=== PATIENT | female | born 1970 | race Caucasian/White ===

== ENCOUNTER → 2018-09-01 17:28 | Outpatient (CLI) | payer BC, SELFPAY ==
[2018-09-01 18:36] LABS: Add Manual Diff / Slide Review NO; Basophils Absolute Auto 0 /uL (0-100); Basophils Percent Auto 0.4 % (0-2); Eosinophils Absolute Auto 300 /uL (0-450); Eosinophils Percent Auto 4.1 % (2-4); Hematocrit 39.1 % (36-46); Hemoglobin 12.9 g/dL (12.0-16.0); Lymphocytes Absolute Auto 3300 /uL (1100-4500); Lymphocytes Percent Auto 40.2 % (25-40); Mean Corpuscular HGB Conc 32.9 % (30-36); Mean Corpuscular Volume 91.1 fL (80-100); Monocytes Absolute Auto 600 /uL (0-900); Monocytes Percent Auto 7.4 % (3-14); Neutrophils Absolute Auto 3900 /uL (1500-7000); Neutrophils Percent Auto 47.9 % (50-75); Platelet Count 227 X10^3/uL (150-400); Red Blood Cell Count 4.29 X10^6/uL (4.0-5.2); Red Cell Distribution Width 13.4 % (11.6-14.8); White Blood Cell Count 8.2 X10^3/uL (4.5-11.0)
[2018-09-01 18:42] LABS: Blood Urea Nitrogen 14 mg/dL (7-17); Calcium 9.7 mg/dL (8.4-10.2); Carbon Dioxide 29 mmol/L (22-32); Chloride 103 mmol/L (98-107); Estimated Glomerular Filt Rate > 60.0 mL/min (>60); Glucose 98 mg/dL (70-100); HEMOLYSIS < 15 (0-50); Potassium 4.3 mmol/L (3.4-5.1); Sodium 141 mmol/L (137-145)
== END ==
PROVIDERS: PCP Student in an Organized Health Care Education/Training Program; Visit Provider Registered Nurse
DX: Z01.812 Encounter for preprocedural laboratory examination (principal)
CPT/HCPCS: 36415; 80048; 85025

== ENCOUNTER → 2018-09-24 07:44 | Outpatient (CLI) | payer BC, SELFPAY ==
[2018-09-24 09:17] LABS: BUN Creatinine Ratio 24.3 (6-22); Blood Urea Nitrogen 17 mg/dL (7-17); Carbon Dioxide 31 mmol/L (22-32); Chloride 99 mmol/L (98-107); Estimated Glomerular Filt Rate > 60.0 mL/min (>60); Glucose 94 mg/dL (70-100); HEMOLYSIS < 15 (0-50); Potassium 4.7 mmol/L (3.4-5.1); Sodium 139 mmol/L (137-145)
== END ==
PROVIDERS: Family Provider Registered Nurse; PCP Registered Nurse; Visit Provider Orthopaedic Surgery
DX: Z13.1 Encounter for screening for diabetes mellitus (principal); E11.9 Type 2 diabetes mellitus without complications; I10 Essential (primary) hypertension
CPT/HCPCS: 36415; 80048

== ENCOUNTER 2018-10-02 21:46 | Emergency (ER) | payer BC, SELFPAY ==
[2018-10-02 22:03] VITALS: BP 143/80; PULSE 61; RESP 16; TEMP 37.1; O2SAT 96; BMI 43.8
--- NOTE | 2018-10-02 23:31 | PC.NURSE ---
Pt c/o chills,pain,nausea,diarrhea, states hasn't had her daily 8mg of morphine via pain pump for 2 weeks due to not being able to refill from pain doctor legalities. Pt has not had any in 2 weeks and is unable to get refill due to legalities related to pain doctor.
[2018-10-03] MEDS: ONDANSETRON 4 MG/2 ML INJ IV (00:10)
--- NOTE | 2018-10-03 00:19 | ED.BACK ---
HPI - Back Pain/Injury General Chief Complaint: Back Pain/Injury Stated Complaint: Withdrawels Time Seen by Provider: 10/02/18 23:49 Source: patient Mode of arrival: ambulatory Limitations: no limitations History of Present Illness HPI Narrative: the patient is a 48-year-old female who presents with body aches diarrhea and back pain. Since 2006 she has had a morphine pump installed in her back to help control her back pain. Unfortunately the doctor who has been prescribing morphine and place a morphine pump which is replaced every 5 years has lost his license. She was supposed to get the morphine refilled [facility] but due to the circumstances she was unable to. She is not sure when the pump ran out of morphine however for the last few days she has been cold and chilled shaking extremely sensitive to touch some abdominal cramping and diarrhea. She said this feels like the last time when she went through withdrawal. She has not had nausea or vomiting. She denies any fever. His MD Complaint: back pain Onset (ago): year(s) Related Data Home Medications Medication Instructions Recorded Confirmed spironolactone 100 mg PO DAILY 10/01/18 10/01/18 Previous Rx's Medication Instructions Recorded hydrocodone 5 mg-acetaminophen 325 1 tab PO SEE INSTRUCTIONS PRN #120 02/17/18 mg tablet tab levothyroxine 50 mcg tablet 50 mcg PO QAM #90 tab 02/17/18 metoprolol succinate ER 25 mg 25 mg PO DAILY #90 tab 02/17/18 tablet,extended release 24 hr lisinopril 10 mg tablet 10 mg PO DAILY #30 tab 09/05/18 clonidine HCl 0.1 mg PO BID PRN #20 tab 10/03/18 ondansetron 4 mg PO Q6-8H PRN #10 tab 10/03/18 Allergies Allergy/AdvReac Type Severity Reaction Status Date / Time Iodine and Iodide Containing Allergy Severe HIVES-ANAPHYLAXSIS Verified 10/02/18 22:06 Produc AND HIVES [IODINE AND IODIDE CONTAINING PRODUC] Penicillins [PENICILLINS] Allergy Severe HIVES-ANAPH Verified 10/02/18 22:06 LAXYSIS-HIV ES Review of Systems Review of Systems GENERAL: Denies chills, fatigue, malaise, fever, sweats, travel HEENT: Denies sinus pain, ear pain, sore throat, difficulty swallowing, neck pain RESPIRATORY: Denies dyspnea, cough, wheezing, hemoptysis, sputum. CARDIOVASCULAR: Denies chest pain, palpitations, orthopnea, edema GASTROINTESTINAL:+ Abdominal discomfort, diarrhea : Denies dysuria, frequency, incontinence, hematuria, urinary retention, flank pain. MUSCULOSKELETAL: Denies weakness, joint pain, or bony pain SKIN: No rash, no erythema, no pruritus NEUROLOGIC: Denies weakness, dizziness, headache, numbness, change in speech, confusion PSYCHIATRIC: chronic opiate use 12 point review of systems is negative except for those stated above and HPI PFSH Medical History Arthritis (Acute) Asthma (Acute) Edema (Acute) Kidney stones (Acute ~2006) Precancerous skin lesion (Acute) Prolapsed bladder (Acute) Ankle pain (Chronic 2014) Chronic low back pain (Chronic) Foot pain (Chronic) Hypertension (Chronic 1999) Hypothyroidism (Chronic 2013) Osteoarthritis (Chronic 2000) Tinea pedis (Chronic) Urinary incontinence (Chronic 2012) Surgical History Anesthesia (Resolved) History of hernia surgery (Resolved) Status post breast biopsy (Resolved) Status post hysterectomy (Resolved 1999) Status post insertion of intrathecal pump (Resolved ~2012) Family History Father Diabetes mellitus Heart disease Hypertension Grandfather Heart disease Cancer Heart attack Grandmother Diabetes mellitus Breast cancer Mother Diabetes mellitus Heart disease Hypertension High cholesterol Social History Smoking Status: Never smoker alcohol intake: current substance use type: does not use Social History Smoking Status: Never smoker alcohol intake: current substance use type: does not use Exam Initial Vital Signs Initial Vital Signs: Vital Signs Temperature 98.8 F 10/02/18 22:03 Pulse Rate 61 10/02/18 22:03 Respiratory Rate 16 10/02/18 22:03 Blood Pressure 143/80 H 10/02/18 22:03 Pulse Oximetry 96 10/02/18 22:03 GENERAL: Overweight covered in blankets appears slightly pale HEENT: Head atraumatic,EOMI, pupils reactive CARDIOVASCULAR: Regular rate and rhythm without murmurs, rubs or gallops. RESPIRATORY: Breath sounds equal bilaterally, no wheezes rales or rhonchi. ABDOMEN: Soft, obese mild lower abdominal tenderness without localization guarding or rebound. EXTREMITIES: Normal range of motion, no clubbing or edema. Neurovascularly intact NEUROLOGICAL: Alert and oriented x4 print traffic manager strength equal bilaterally SKIN: Warm, dry, no laceration, no petechiae, no rashes or lesions. Course Orders Ordered: ED Orders 10/03/18 00:10 Basic Metabolic Panel Stat Complete Blood Count AUTO DIFF Stat Discontinued Medications Clonidine HCl (Catapres) 0.1 mg PO NOW ONE Stop: 10/03/18 01:40 Last Admin: 10/03/18 01:46 Dose: 0.1 mg Sodium Chloride (Normal Saline 0.9%) 1,000 mls @ 1,000 mls/hr IV BOLUS ONE Stop: 10/03/18 01:05 Last Infusion: 10/03/18 01:47 Dose: 1,000 mls/hr Admin: 10/03/18 00:28 Dose: 1,000 mls/hr Ketorolac Tromethamine (Toradol) 30 mg IV NOW ONE Stop: 10/03/18 00:07 Last Admin: 10/03/18 00:28 Dose: 30 mg Ondansetron HCl (Zofran) 4 mg IV NOW ONE Stop: 10/03/18 00:07 Last Admin: 10/03/18 00:10 Dose: 4 mg Ondansetron HCl (Zofran Odt Prepack) 1 bottle MISC SEEINSTR ONE Stop: 10/03/18 01:40 Last Admin: 10/03/18 01:46 Dose: 1 bottle Vital Signs - 8 hr 10/02/18 22:03 10/03/18 01:46 10/03/18 01:48 Temperature 98.8 F Pulse Rate 61 62 57 L Respiratory Rate 16 15 Blood Pressure 143/80 H 144/81 H Blood Pressure [Right Arm] 140/74 Pulse Oximetry 96 98 10/03/18 02:01 Temperature 98.7 F Pulse Rate Respiratory Rate Blood Pressure Blood Pressure [Right Arm] Pulse Oximetry MDM - Back Pain/Injury Lab Data Result diagrams: 10/03/18 00:10 10/03/18 00:10 Lab Results 10/03/18 10/03/18 Range/Units 00:10 00:10 WBC 13.3 H (4.5-11.0) X10^3/uL RBC 4.59 (4.0-5.2) X10^6/uL Hgb 13.6 (12.0-16.0) g/dL Hct 40.8 (36-46) % MCV 88.9 (80-100) fL MCH 29.7 (26-34) PG MCHC 33.4 (30-36) % RDW 13.0 (11.6-14.8) % Plt Count 273 (150-400) X10^3/uL Neut % (Auto) 72.6 (50-75) % Lymph % (Auto) 20.0 L (25-40) % [place] % (Auto) 6.8 (3-14) % Eos % (Auto) 0.0 L (2-4) % Baso % (Auto) 0.6 (0-2) % Neut # (Auto) 9700 H (3303-0995) /uL Lymph # (Auto) 2700 (4710-9829) /uL [place] # (Auto) 900 (0-900) /uL Eos # (Auto) 0 (0-450) /uL Baso # (Auto) 100 (0-100) /uL Sodium 140 (137-145) mmol/L Potassium 4.0 (3.4-5.1) mmol/L Chloride 105 (98-107) mmol/L Carbon Dioxide 23 (22-32) mmol/L BUN 14 (7-17) mg/dL Creatinine 0.70 (0.52-1.04) mg/dL Estimated GFR > 60.0 (>60) mL/min BUN/Creatinine Ratio 20.0 (6-22) Glucose 116 H (70-100) mg/dL Calcium 9.6 (8.4-10.2) mg/dL MDM Narrative Medical decision making narrative: Patient is resting comfortably she has mild leukocytosis without left shift. She has been afebrile. the symptoms are similar to her previous symptoms of withdrawal. She does have multiple loose bowel movements. Long discussion with patient and her about chronic pain medication and opiates. Is not sure she will find somebody to refill her pump medications. I recommended methadone or Suboxone clinic to help her with withdrawals this will also help with pain. She they are given his referral so that along with [facility] and Dr. Holt. Patient says that she has been through everything in the past and the intraspinal morphine continue with pump is the only thing that has worked for her. She is not requesting any pain medication in the ED. I have also made it very clear that I will not be writing her opiate medications. She does not have vomiting she is keeping fluids in. At this time I do not think that she has any sort of infection. I did recommend that if the pump does not have any medications in it is no longer being used that it does need to come out. They understand and agree with that as well they understand risk of infection with this. Patient is given prescriptions for Zofran and clonidine. In the ED for more than 3 hr she has not had 1 episode of diarrhea or vomiting. Discharge Plan Departure Patient Disposition: Home Clinical Impression: Acute opioid withdrawal Discharge Date/Time: 10/03/18 02:02 Interventions: ED Discharge Assessment Last Done: 10/03/18 02:01 Instructions: Buprenorphine Sublingual and Buccal (opioid dependence) Activity Restrictions/Additional Instructions: *You have been diagnosed with opioid withdrawal *What to do: recommend methadone or Suboxone clinic to help with withdrawal symptoms as. You may also need chronic pain management as well. *Continue to take medications as directed --> [facility] Clonidine 0.1 mg p.o. twice a day to help with anxiety Zofran 4 mg every 6-8 hours if needed for nausea or vomiting *Follow up with your primary care provider in 2-3 days *Return to ER if you should have unable to keep any fluid in, fever sweats worsening chills or signs of infection or any new, worsening or concerning symptoms Prescriptions: New clonidine HCl 0.1 mg tablet 0.1 mg PO BID PRN (Reason: anxiety) Qty: 20 RF: 0 ondansetron 4 mg tablet,disintegrating 4 mg PO Q6-8H PRN (Reason: nausea and vomiting) Qty: 10 RF: 0 No Action hydrocodone-acetaminophen [[place]] 5-325 mg tablet 1 tab PO SEE INSTRUCTIONS PRN (Reason: pain) Qty: 120 RF: 0 levothyroxine [Synthroid] 50 mcg tablet 50 mcg PO QAM Qty: 90 RF: 3 metoprolol succinate 25 mg tablet extended release 24 hr 25 mg PO DAILY Qty: 90 RF: 3 lisinopril 10 mg tablet 10 mg PO DAILY Qty: 30 RF: 1 spironolactone 100 mg Tablet 100 mg PO DAILY RF: 0 Referrals: Eris Holt DO [Physician] - Jody Mackey ARNP [Primary Care Provider] -
[2018-10-03] MEDS: SODIUM CHLORIDE 0.9% 1,000 ML 1000 ML IV (00:28)
[2018-10-03] MEDS: KETOROLAC 60 MG/2 ML VIAL 30 MG IV (00:28)
[2018-10-03 00:35] LABS: Add Manual Diff / Slide Review NO; Basophils Absolute Auto 100 /uL (0-100); Basophils Percent Auto 0.6 % (0-2); Eosinophils Absolute Auto 0 /uL (0-450); Hematocrit 40.8 % (36-46); Hemoglobin 13.6 g/dL (12.0-16.0); Lymphocytes Absolute Auto 2700 /uL (1100-4500); Mean Corpuscular HGB Conc 33.4 % (30-36); Mean Corpuscular Hemoglobin 29.7 PG (26-34); Mean Corpuscular Volume 88.9 fL (80-100); Monocytes Absolute Auto 900 /uL (0-900); Monocytes Percent Auto 6.8 % (3-14); Neutrophils Absolute Auto 9700 /uL (1500-7000); Neutrophils Percent Auto 72.6 % (50-75); Platelet Count 273 X10^3/uL (150-400); Red Blood Cell Count 4.59 X10^6/uL (4.0-5.2); White Blood Cell Count 13.3 X10^3/uL (4.5-11.0)
[2018-10-03 00:39] LABS: Blood Urea Nitrogen 14 mg/dL (7-17); Calcium 9.6 mg/dL (8.4-10.2); Carbon Dioxide 23 mmol/L (22-32); Chloride 105 mmol/L (98-107); Estimated Glomerular Filt Rate > 60.0 mL/min (>60); Glucose 116 mg/dL (70-100); HEMOLYSIS 45 (0-50); Sodium 140 mmol/L (137-145)
[2018-10-03 01:46] VITALS: BP 144/81; PULSE 62
[2018-10-03] MEDS: cloNIDine 0.1 MG TABLET PO (01:46)
[2018-10-03] MEDS: ONDANSETRON 4 MG ODT PREPACK 1 BOTTLE MISC (01:46)
[2018-10-03 01:48] VITALS: BP 140/74; PULSE 57; RESP 15; O2SAT 98
[2018-10-03 02:01] VITALS: TEMP 37.1
== END 2018-10-03 02:02 | disposition home or self-care (01) ==
PROVIDERS: Emergency Provider Emergency Medicine; Family Provider Registered Nurse; PCP Registered Nurse
DX: F11.23 Opioid dependence with withdrawal (principal)
CPT/HCPCS: 36591; 80048; 85025; 96361; 96374; 96375; 99283; 99284; J1885; J2405

== ENCOUNTER → 2018-12-15 10:12 | Outpatient (CLI) | payer BC, SELFPAY ==
[2018-12-15 11:17] LABS: BUN Creatinine Ratio 15.7 (6-22); Blood Urea Nitrogen 11 mg/dL (7-17); Calcium 9.5 mg/dL (8.4-10.2); Carbon Dioxide 28 mmol/L (22-32); Chloride 102 mmol/L (98-107); Cholesterol 222 mg/dL (140-199); Estimated Glomerular Filt Rate > 60.0 mL/min (>60); Glucose 116 mg/dL (70-100); HDL Cholesterol 60 mg/dL (40-60); HEMOLYSIS < 15 (0-50); LDL Cholesterol Calculated 133 mg/dL (<100); Sodium 141 mmol/L (137-145); Triglycerides 147 mg/dL (35-150)
[2018-12-15 11:32] LABS: Vitamin D 25 Hydroxy (D3) 18.1 ng/mL (30.0-100.0)
[2018-12-15 11:36] LABS: Free T3, Triiodothyronine Free 3.13 pg/mL (2.77-5.27); Free T4, Direct Thyroxine 0.93 ng/dL (0.78-2.19)
[2018-12-15 11:49] LABS: Thyroid Stimulating Hormone 1.49 uIU/mL (0.47-4.68)
== END ==
PROVIDERS: PCP Student in an Organized Health Care Education/Training Program; Visit Provider Student in an Organized Health Care Education/Training Program
DX: E03.9 Hypothyroidism, unspecified (principal); I10 Essential (primary) hypertension; Z13.220 Encounter for screening for lipoid disorders; E55.9 Vitamin D deficiency, unspecified
CPT/HCPCS: 36415; 80048; 80061; 82306; 84439; 84443; 84481

== ENCOUNTER → 2018-12-16 15:32 | Outpatient (CLI) | payer BC, SELFPAY ==
--- NOTE | 2018-12-16 15:33 | DI.RAD.S_ITS ---
PROCEDURE: XR CHEST 2V INDICATIONS: Shortness of breath TECHNIQUE: 2 views of the chest were acquired. COMPARISON: formerly [facility], CHEST 1 VIEW, 12/31/2015, 14:21. formerly [facility], CHEST 2 VIEW, 09/25/2017, 13:32. FINDINGS: Surgical changes and devices: None. Lungs and pleura: Lungs are clear. No pleural effusions or pneumothorax. Mediastinum: Mediastinal contours are normal. Heart size is normal. Bones and chest wall: No suspicious bony abnormalities. Soft tissues appear unremarkable. IMPRESSION: No active cardiopulmonary disease. Dictated by: Andrew Velez M.D. on 12/16/2018 at 16:13 Approved by: Andrew Velez M.D. on 12/16/2018 at 16:14
== END ==
PROVIDERS: PCP Student in an Organized Health Care Education/Training Program; Visit Provider Nurse Practitioner
DX: R06.02 Shortness of breath (principal)
CPT/HCPCS: 71046

== ENCOUNTER → 2019-03-26 17:05 | Outpatient (CLI) | payer BC, SELFPAY ==
--- NOTE | 2019-03-26 17:07 | DI.MG.S_ITS ---
BILATERAL DIGITAL SCREENING MAMMOGRAM 3D/2D WITH CAD: 03/26/2019 CLINICAL: Routine screening. Family history of breast cancer. Comparison is made to exams dated: 05/29/2017 mammogram, 01/29/2014 mammogram, and 08/24/2011 mammogram - [facility]. The tissue of both breasts is predominantly fatty. Current study was also evaluated with a Computer Aided Detection (CAD) system. No significant masses, calcifications, or other findings are seen in either breast. There has been no significant interval change. IMPRESSION: NEGATIVE There is no mammographic evidence of malignancy. A 1 year screening mammogram is recommended. This exam was interpreted at Station ID: [id number]. NOTE: For mammograms, a report in lay terms will be sent to the patient. Approximately 15% of breast malignancies will not be visualized mammographically. In the management of a palpable breast mass, a negative mammogram must not discourage biopsy of a clinically suspicious lesion. Electronically Signed By: Reza dorado/lisa:03/27/2019 08:22:31 letter sent: Normal Exam ACR BI-RADS Category 1: Negative [id number]
== END ==
PROVIDERS: PCP Student in an Organized Health Care Education/Training Program; Visit Provider Student in an Organized Health Care Education/Training Program
DX: Z12.31 Encounter for screening mammogram for malignant neoplasm of breast (principal); Z80.3 Family history of malignant neoplasm of breast
CPT/HCPCS: 77063; 77067

== ENCOUNTER 2019-09-16 11:38 | Emergency (ER) | payer BC, SELFPAY ==
[2019-09-16 11:42] VITALS: BP 137/89; PULSE 76; RESP 20; TEMP 37.2; O2SAT 97; BMI 42.3
[2019-09-16 12:27] LABS: Influenza A - CEPHEID Flu A POSITIVE (NEGATIVE); Influenza B - CEPHEID Flu B NEGATIVE (NEGATIVE)
--- NOTE | 2019-09-16 12:29 | ED_ITS ---
HPI - URI/Sore Throat <Carleen Mckeon, SPINE SUPERVISOR - Last Filed: 09/16/19 21:59> General Chief Complaint: Upper Respiratory Symptoms Stated Complaint: asthma hard time breathing headache bi ears issue Time Seen by Provider: 09/16/19 12:24 Source: patient Mode of arrival: Ambulatory Limitations: no limitations History of Present Illness HPI Narrative: 49-year-old female with history of asthma presents to the emergency department complaining shortness of breath and wheezing over the past 2 days. Patient states she recently flew from [place] to [place] and started to feel like she had chills, nasal congestion, dry cough, and intermittent nausea. She usually takes Breo Ellipta and comnivent for her asthma. Patient is needed her rescue or frequently over the past 24 hours. Patient denies any sick contacts that she knows of. She denies vomiting, abdominal pain, diarrhea, chest pain, dizziness, or other concerns. Related Data Home Medications Medication Instructions Recorded Confirmed triamcinolone acetonide 55 mcg 1 spray NASAL DAILY 07/14/19 08/13/19 nasal spray aerosol Previous Rx's Medication Instructions Recorded albuterol sulfate 90 mcg/actuation 1 puff INHALATION Q4-6H PRN #6.7 12/16/18 aerosol inhaler gram losartan 50 mg tablet 75 mg PO DAILY #45 tab 12/16/18 citalopram 20 mg tablet 20 mg PO DAILY #90 tab 03/06/19 spironolactone 100 mg tablet 100 mg PO DAILY #90 tab 03/06/19 montelukast 10 mg tablet 10 mg PO BEDTIME #30 tab 04/08/19 phentermine 37.5 mg tablet See Rx Instructions PO BID #90 tab 04/09/19 fluticasone furoate 200 1 inhalation INHALATION DAILY #60 08/13/19 mcg-vilanterol 25 mcg/dose each inhalation powder hydrocodone 5 mg-acetaminophen 325 1 tab PO BID PRN #60 tab 08/13/19 mg tablet ipratropium 20 mcg-albuterol 100 1 puff INHALATION QID #4 gram 08/13/19 mcg/actuation mist for inhalation oseltamivir [Tamiflu] 75 mg PO BID 5 Days #10 cap 09/16/19 prednisone 50 mg PO DAILY 5 Days #5 tab 09/16/19 Allergies Allergy/AdvReac Type Severity Reaction Status Date / Time Iodine and Iodide Containing Allergy Severe HIVES-ANAPHYLAXSIS Verified 08/13/19 09:04 Produc AND HIVES [IODINE AND IODIDE CONTAINING PRODUC] Penicillins [PENICILLINS] Allergy Severe HIVES-ANAPH Verified 08/13/19 09:04 LAXYSIS-HIV ES EWA Inhibitors AdvReac Intermediate Cough Verified 08/13/19 09:04 Review of Systems <SHAE Greenfield - Last Filed: 09/16/19 21:59> Review of Systems Narrative: REVIEW OF SYSTEMS: GENERAL: Reports increasing fatigue, see HPI. HENT: No head trauma or hearing loss. EYES: No loss of vision, double vision, eye pain, irritation or discharge. CARDIOVASCULAR: No chest pain or syncope. RESPIRATORY: Patient complains of wheezing and cough, see HPI. GASTROINTESTINAL: No nausea, vomiting, diarrhea, or constipation. MUSCULOSKELETAL: No weakness or injury. INTEGUMENTARY: No rash, lesions, or pruritus. NEURO: No memory loss, or confusion. Patient History <SHAE Greenfield - Last Filed: 09/16/19 21:59> Medical History Ankle pain (Chronic 2014) Arthritis (Acute) Asthma (Acute) Chronic low back pain (Chronic) Edema (Acute) Foot pain (Chronic) Hypertension (Chronic 1999) Hypothyroidism (Chronic 2013) Kidney stones (Acute ~2006) Osteoarthritis (Chronic 2000) Precancerous skin lesion (Acute) Prolapsed bladder (Acute) Tinea pedis (Chronic) Urinary incontinence (Chronic 2012) Surgical History Anesthesia (Resolved) History of hernia surgery (Resolved) Status post breast biopsy (Resolved) Status post hysterectomy (Resolved 1999) Status post insertion of intrathecal pump (Resolved ~2012) Family History Father Diabetes mellitus Heart disease Hypertension Grandfather Heart disease Cancer Heart attack Grandmother Diabetes mellitus Breast cancer Mother Diabetes mellitus Heart disease Hypertension High cholesterol Social History household members: significant other Smoking Status: Smoker, status unknown second hand exposure: No alcohol intake: current substance use type: does not use Smoking Status: Smoker, status unknown alcohol intake frequency: holidays/special occasions only Substance Use Type: does not use Exam <SHAE Greenfield - Last Filed: 09/16/19 21:59> Initial Vital Signs Initial Vital Signs: Vital Signs Temperature 98.9 F 09/16/19 11:42 Pulse Rate 76 09/16/19 11:42 Respiratory Rate 20 09/16/19 11:42 Blood Pressure 137/89 09/16/19 11:42 Pulse Oximetry 97 09/16/19 11:42 PHYSICAL EXAMINATION: GENERAL: Well groomed, alert, and cooperative. Answers questions promptly and appropriately. Vital signs noted. HENT: Normocephalic, atraumatic. Ear canals patent. TMs intact without mucus or erythema. Oropharynx with slight amount of erythema, see HPI. Tonsils are not present. EYES: Conjunctiva pink, sclera white, no periorbital swelling. No discharge. CHEST: Normal to inspection and without deformities. CARDIOVASCULAR: S1 and S2 sounds normal. Regular rate and rhythm, no murmurs, clicks, or bruits. RESPIRATORY: Normal respiratory rate, trachea midline, airway patent. No stridor, nasal flaring or accessory muscle use. Able to speak in full sentences. Lungs with expiratory wheezes heard on examination, no crackles or rhonchi. Wheezes improved after administration of DuoNeb. MUSCULOSKELETAL: Normal gait and coordination. Equal tone and mass bilaterally. EXTREMITIES: Moves all extremities. SKIN: Warm, dry, soft, appropriate color for ethnicity. No lesions, rashes, or wounds to visualized areas. NEURO: Alert and Oriented X 3. Good coordination. No ataxia or cognitive issues. PSYCH: Appropriate affect and mood. <Mamadou Yusuf MD - Last Filed: 09/16/19 22:01> Initial Vital Signs Initial Vital Signs: Vital Signs Temperature 98.9 F 09/16/19 11:42 Pulse Rate 76 09/16/19 11:42 Respiratory Rate 09/16/19 11:42 Blood Pressure 137/89 09/16/19 11:42 Pulse Oximetry 97 09/16/19 11:42 Course <SHAE Greenfield - Last Filed: 09/16/19 21:59> Course Course Narrative: Patient was given a DuoNeb in the emergency department which improved symptoms. Orders Ordered: Discontinued Medications Albuterol/Ipratropium (Duoneb) 3 ml INH NOW ONE Stop: 09/16/19 12:59 Last Admin: 09/16/19 13:28 Dose: 3 ml Documented by: LEODANUONG Vital Signs Vital signs: Vital Signs - 8 hr 09/16/19 11:42 Temperature 98.9 F Pulse Rate 76 Respiratory Rate 20 Blood Pressure 137/89 Pulse Oximetry 97 <Mamadou Yusuf MD - Last Filed: 09/16/19 22:01> Orders Ordered: Discontinued Medications Albuterol/Ipratropium (Duoneb) 3 ml INH NOW ONE Stop: 09/16/19 12:59 Last Admin: 09/16/19 13:28 Dose: 3 ml Documented by: HTRUONG Vital Signs Vital signs: Vital Signs - 8 hr 09/16/19 11:42 Temperature 98.9 F Pulse Rate 76 Respiratory Rate 20 Blood Pressure 137/89 Pulse Oximetry 97 MDM - URI/Sore Throat <SHAE Greenfield - Last Filed: 09/16/19 21:59> Medical Records Attestation: I reviewed the patient's medical records. Lab Data Attestation: I reviewed the patient's lab results. Labs: Lab Results 09/16/19 Range/Units 11:47 Influenza A (RT-PCR) Flu a positive H (NEGATIVE) Influenza B (RT-PCR) Flu b negative (NEGATIVE) [facility] Narrative Medical decision making narrative: 49-year-old female presents to the emergency department for worsening asthma symptoms. Patient's test was positive for influenza A. Patient developed symptoms within the last 48 hours, she was started on Tamiflu after discussion of risks and benefits. Due to wheezing and history of significant asthma, patient was given a burst of prednisone. She was given a DuoNeb in the emergency department which improved symptoms. She was counseled about the importance of follow-up within 1-2 weeks for further evaluation. Strict ED precautions given for new worsening symptoms, she is to return emergency department if these develop. Less concern for the development of pneumonia due to positive influenza test and symptoms have been ongoing for only 2 days, lack of crackles on examination. Less concern for sepsis due to lack of tachycardia, or fevers. Patient agreed with plan of care verbalized understanding. <Mamadou Yusuf MD - Last Filed: 09/16/19 22:01> Lab Data Labs: Lab Results 09/16/19 Range/Units 11:47 Influenza A (RT-PCR) Flu a positive H (NEGATIVE) Influenza B (RT-PCR) Flu b negative (NEGATIVE) Discharge Plan Departure Patient Disposition: Home Clinical Impression: Influenza A Asthma exacerbation Qualifiers: Asthma severity: moderate Asthma persistence: persistent Qualified Code(s): J45.41 - Moderate persistent asthma with (acute) exacerbation Discharge Date/Time: 09/16/19 13:48 Instructions: DI for Asthma -- Adult, DI for Influenza -- Adult Activity Restrictions/Additional Instructions: Thank you for entrusting me with your care today. As discussed, you tested positive for influenza A. I have prescribed you Tamiflu and prednisone, prescription sent to [facility] (formerly [facility] in [place]. Please cover your cough and wash your hands as influenza is contagious. Please call your primary care provider for an appointment for re-evaluation next week. Return emergency department if you develop worsening symptoms such as severe shortness of breath, worsening asthma symptoms, uncontrollable vomiting, chest pain, or other concerns. Prescriptions: New oseltamivir [Tamiflu] 75 mg capsule 75 mg PO BID 5 Days Qty: 10 RF: 0 prednisone 50 mg tablet 50 mg PO DAILY 5 Days Qty: 5 RF: 0 No Action montelukast 10 mg tablet 10 mg PO BEDTIME Qty: 30 RF: 0 triamcinolone acetonide [Nasacort] 55 mcg aerosol,spray 1 spray NASAL DAILY RF: 0 albuterol sulfate [Ventolin HFA] 90 mcg/actuation HFA aerosol inhaler 1 puff INHALATION Q4-6H PRN (Reason: shortness of breath or wheezing, or cough) Qty: 6.7 RF: 2 losartan 50 mg tablet 75 mg PO DAILY Qty: 45 RF: 2 Combivent Respimat 20-100 mcg/actuation mist 1 puff INHALATION QID Qty: 4 RF: 11 Breo Ellipta 200-25 mcg/dose blister with device 1 inhalation INHALATION DAILY Qty: 60 RF: 3 hydrocodone-acetaminophen 5-325 mg tablet 1 tab PO BID PRN (Reason: pain) Qty: 60 RF: 0 citalopram 20 mg tablet 20 mg PO DAILY Qty: 90 RF: 3 spironolactone 100 mg tablet 100 mg PO DAILY Qty: 90 RF: 3 phentermine 37.5 mg tablet See Rx Instructions PO BID Qty: 90 RF: 1 Referrals: Renaldo Jackson MD [Primary Care Provider] -
[2019-09-16 13:16] VITALS: BP 132/85; PULSE 69; TEMP 37; O2SAT 93
[2019-09-16] MEDS: ALBUTEROL/IPRATROPIUM 3 ML AMPUL INH (13:28)
[2019-09-16 13:29] VITALS: PULSE 72; RESP 20; O2SAT 98
[2019-09-16 13:47] VITALS: BP 140/86; PULSE 83; O2SAT 97
== END 2019-09-16 13:48 | disposition home or self-care (01) ==
PROVIDERS: Emergency Medicine; Emergency Provider Nurse Practitioner; PCP Student in an Organized Health Care Education/Training Program
DX: J09.X2 Influenza due to identified novel influenza A virus with other respiratory manifestations (principal); J45.41 Moderate persistent asthma with (acute) exacerbation; F17.200 Nicotine dependence, unspecified, uncomplicated
CPT/HCPCS: 87502; 94640; 99283

== ENCOUNTER → 2019-09-21 14:13 | Outpatient (CLI) | payer BC, SELFPAY ==
--- NOTE | 2019-09-21 14:14 | DI.RAD.S_ITS ---
PROCEDURE: XR CHEST 2V INDICATIONS: rule out pnx TECHNIQUE: 2 views of the chest were acquired. COMPARISON: [facility], CR, XR CHEST 2V, 12/16/2018, 15:36. FINDINGS: Surgical changes and devices: None. Lungs and pleura: Lungs are clear. No pleural effusions or pneumothorax. Mediastinum: Mediastinal contours are normal. Heart size is normal. Bones and chest wall: No suspicious bony abnormalities. Soft tissues appear unremarkable. IMPRESSION: No acute cardiopulmonary disease process. Dictated by: Taylor Bermudez MD, PhD on 09/21/2019 at 14:24 Approved by: Taylor Bermudez MD, PhD on 09/21/2019 at 14:24
== END ==
PROVIDERS: PCP Student in an Organized Health Care Education/Training Program; Referring Provider Nurse Practitioner; Visit Provider Nurse Practitioner
DX: R05 Cough (principal); J45.901 Unspecified asthma with (acute) exacerbation
CPT/HCPCS: 71046

== ENCOUNTER → 2020-09-26 10:47 | Outpatient (CLI) | payer BC, SELFPAY ==
--- NOTE | 2020-09-26 | DI.RAD.S_ITS ---
PROCEDURE: XR SINUS MIN 3V INDICATIONS: J32.9 allergy sufferer TECHNIQUE: 3 views of the sinuses were acquired. COMPARISON: None. FINDINGS: Sinuses: The visualized sinuses are elated without definite air-fluid level. Sinus walsh are intact. The visualized mastoids also appear clear. Bones: No suspicious bony lesions. Nasal septum minimally bowed towards the left.. IMPRESSION: No definite sinus opacification or air-fluid level is seen. If clinically indicated, a sinus CT may be obtained for further evaluation. Dictated by: David Clyaton M.D. on 09/26/2020 at 14:33 Approved by: David Clayton M.D. on 09/26/2020 at 14:36
--- NOTE | 2020-09-26 10:52 | DI.RAD.S_ITS ---
PROCEDURE: XR KNEE LT 3V INDICATIONS: left knee pain TECHNIQUE: 3 views of the knee were acquired. COMPARISON: None. FINDINGS: Bones: No acute fractures or dislocations. No suspicious bony lesions. Tricompartmental degenerative changes are seen including marginal osteophyte formation in all 3 compartments. There is moderate narrowing of the medial femorotibial compartment. Soft tissues: Small joint effusion. No suspicious soft tissue calcifications. 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 Dictated by: David Clayton M.D. on 09/26/2020 at 14:31 Approved by: David Clayton M.D. on 09/26/2020 at 14:32
== END ==
PROVIDERS: PCP Student in an Organized Health Care Education/Training Program; Referring Provider Physician Assistant; Visit Provider Nurse Practitioner
DX: M25.562 Pain in left knee (principal); M17.12 Unilateral primary osteoarthritis, left knee; J32.9 Chronic sinusitis, unspecified
CPT/HCPCS: 70220; 73562

== ENCOUNTER → 2020-11-03 12:44 | Outpatient (CLI) | payer BC, SELFPAY ==
--- NOTE | 2020-11-03 12:47 | DI.US.S_ITS ---
PROCEDURE: US SOFT TISSUE HEAD AND NECK INDICATIONS: MASS UNDER CHIN - TENDER TO PALPATION. TECHNIQUE: Real-time scanning was performed of the neck region of interest, with image documentation. COMPARISON: None. FINDINGS: Multiple grayscale color Doppler images of the right submandibular region were acquired at the patient directed area of palpable concern. There are 2 lymph nodes visualized. The more anterior 1 measures 1.0 x 0.9 x 0.8 cm and demonstrates loss of normal fatty hilum. The more posterior lymph node measures 0.7 x 0.8 x 0.6 cm. This demonstrates preservation of normal fatty hilum. IMPRESSION: There are 2 right sided submandibular lymph nodes correlating with area of patient directed palpable concern with the right lymph node demonstrating loss of normal fatty hilum. Recommend further characterization with contrast enhanced CT of the neck. Dictated by: Reza Will M.D. on 11/03/2020 at 16:53 Approved by: Reza Will M.D. on 11/03/2020 at 16:55
[2020-11-03 14:54] LABS: Add Manual Diff / Slide Review NO; Basophils Absolute Auto 100 /uL (0-100); Basophils Percent Auto 0.8 % (0-2); Eosinophils Absolute Auto 100 /uL (0-450); Eosinophils Percent Auto 1.3 % (2-4); Hematocrit 38.2 % (36-46); Hemoglobin 12.6 g/dL (12.0-16.0); Lymphocytes Absolute Auto 2700 /uL (1100-4500); Lymphocytes Percent Auto 34.1 % (25-40); Mean Corpuscular Hemoglobin 31.9 PG (26-34); Mean Corpuscular Volume 96.6 fL (80-100); Monocytes Absolute Auto 700 /uL (0-900); Monocytes Percent Auto 8.4 % (3-14); Neutrophils Absolute Auto 4400 /uL (1500-7000); Neutrophils Percent Auto 55.4 % (50-75); Platelet Count 233 X10^3/uL (150-400); Red Blood Cell Count 3.95 X10^6/uL (4.0-5.2); White Blood Cell Count 7.8 X10^3/uL (4.5-11.0)
== END ==
PROVIDERS: Physician Assistant; PCP Student in an Organized Health Care Education/Training Program; Referring Provider Nurse Practitioner; Visit Provider Nurse Practitioner
DX: R22.0 Localized swelling, mass and lump, head (principal); R22.1 Localized swelling, mass and lump, neck; J45.41 Moderate persistent asthma with (acute) exacerbation
CPT/HCPCS: 36415; 76536; 85025

== ENCOUNTER → 2020-11-07 11:44 | Outpatient (CLI) | payer BC, SELFPAY ==
[2020-11-07 12:58] LABS: BUN Creatinine Ratio 18.2 (6-22); Blood Urea Nitrogen 12 mg/dL (7-17); Calcium 9.6 mg/dL (8.4-10.2); Carbon Dioxide 31 mmol/L (22-32); Chloride 101 mmol/L (98-107); Estimated Glomerular Filt Rate > 60.0 mL/min (>60); Glucose 110 mg/dL (70-100); HEMOLYSIS < 15 (0-50); Sodium 139 mmol/L (137-145)
== END ==
PROVIDERS: PCP Nurse Practitioner; Referring Provider Nurse Practitioner; Visit Provider Nurse Practitioner
DX: Z01.812 Encounter for preprocedural laboratory examination (principal)
CPT/HCPCS: 36415; 80048

== ENCOUNTER → 2020-11-08 13:38 | Outpatient (CLI) | payer BC, SELFPAY ==
--- NOTE | 2020-11-08 13:39 | DI.CT.S_ITS ---
PROCEDURE: CT SOFT TISSUE NECK W CON INDICATIONS: small lump in neck TECHNIQUE: After the administration of intravenous contrast, 3.0 mm axial sections acquired from the sella to the aortic arch. Additional oblique axial 3.0 mm sections acquired through the pharynx. 3 mm thick coronal and sagittal reformats were generated. For radiation dose reduction, the following was used: automated exposure control. COMPARISON: [facility], SOFT TISSUE HEAD AND NECK, 11/03/2020, 12:58. FINDINGS: Image quality: Excellent. Lymph nodes: No lymphadenopathy based on size criteria. Prominent bilateral level 1 and level 2 neck lymph nodes are noted which do not meet pathologic size criteria. Prominent right level 1 lymph nodes are noted deep to metallic BB localizer placed over clinically palpable lesion with largest node deep to the localizer measuring 7 millimeters in short axis. Vessels: Visualized vasculature appears patent. Neck spaces: Mucosal prominence noted left base of the tongue causing partial opacification left locule a which could represent tonsillar hyperplasia or mucosal based mass. Mclean tonsils are prominent bilaterally. The nasopharynx, and pharynx demonstrate no mucosal lesions. The vocal cords, false vocal cords, pyriform sinuses, epiglottis, vallecula, and tongue base all appear normal. Extramucosal spaces appear unremarkable. Glands: The parotid and submandibular glands appear normal. Thyroid gland is normal. Miscellaneous: Visualized brain and orbits appear normal. Lung apices appear clear. Superficial soft tissues appear normal. Bones: No suspicious bony lesions. Spine degenerative disc disease and facet arthropathy. Visualized sinuses and mastoids appear unremarkable. IMPRESSION: 1. Prominent right level 1 neck lymph nodes noted in area of clinical interest. Prominent right level 1 node neck lymph nodes do not meet pathologic size criteria. Decision to biopsy should be based on clinical assessment. 2. Mucosal prominence in the left base of the tongue causing partial opacification left vallecular which could be due to tonsillar hypertrophy or mucosal based mass. Recommend ENT consultation for correlation with direct visualization. 3. Prominent bilateral palatine tonsils which could reactive or neoplastic. Dictated by: Taylor Bermudez MD, PhD on 11/08/2020 at 16:26 Approved by: Taylor Bermudez MD, PhD on 11/08/2020 at 16:32
== END ==
PROVIDERS: PCP Nurse Practitioner; Referring Provider Nurse Practitioner; Visit Provider Nurse Practitioner
DX: R59.0 Localized enlarged lymph nodes (principal)
CPT/HCPCS: 70491

== ENCOUNTER → 2020-11-17 13:22 | Outpatient (CLI) | payer BC, SELFPAY ==
[2020-11-17] MEDS: COVID-19 VACC #1, MRNA(MOD) 100 MCG/0.5 ML VIAL IM (13:28)
== END ==
PROVIDERS: PCP Nurse Practitioner; Visit Provider Internal Medicine
DX: Z23 Encounter for immunization (principal)
CPT/HCPCS: 0011A; 91301

== ENCOUNTER → 2020-12-15 13:03 | Outpatient (CLI) | payer BC, SELFPAY ==
[2020-12-15] MEDS: COVID-19 VACC #2, MRNA(MOD) 100 MCG/0.5 ML VIAL IM (13:06)
== END ==
PROVIDERS: PCP Nurse Practitioner; Visit Provider Internal Medicine
DX: Z23 Encounter for immunization (principal)
CPT/HCPCS: 0012A; 91301

== ENCOUNTER 2021-01-28 14:50 | Emergency (ER) | payer BC, SELFPAY ==
--- NOTE | 2021-01-28 14:59 | DI.RAD.S_ITS ---
PROCEDURE: XR KNEE LT 3V INDICATIONS: LEFT KNEE PAIN AFTER A FALL TECHNIQUE: 3 views of the knee were acquired. COMPARISON: [facility], , XR KNEE LT 3V, 09/26/2020, 10:56. FINDINGS: Bones: No fractures or dislocations. No suspicious bony lesions. Severe tricompartmental knee joint degeneration. Soft tissues: Moderate joint effusion. No suspicious soft tissue calcifications. IMPRESSION: 1. No acute osseous abnormalities. 2. Severe tricompartmental degenerative joint disease. 3. Moderate knee joint effusion. Dictated by: Andrew Velez M.D. on 01/28/2021 at 15:43 Approved by: Andrew Velez M.D. on 01/28/2021 at 15:44
[2021-01-28 15:00] VITALS: BP 204/114; PULSE 96; RESP 20; TEMP 36.6; O2SAT 97; BMI 43.8
--- NOTE | 2021-01-28 15:08 | ED.LOWEXIN ---
HPI - Extremity Injury (Lower) General Chief Complaint: Extremity Injury, Lower Stated Complaint: HURT LEFT KNEE Time Seen by Provider: 01/28/21 15:08 Source: patient Mode of arrival: Ambulatory Limitations: no limitations History of Present Illness HPI Narrative: 50-year-old female nonsmoker with history of asthma and left knee arthritis presents with her significant other and a chief complaint of left knee pain with ambulation since a fall that occurred last night. She states that she had a few drinks and fell and does not remember the specifics about it twisting versus contact injury but she does have pain with ambulation. She denies any head neck back pain. She denies any foot or ankle pain. She denies numbness, tingling or weakness. She states her knee hurts but does not feel unstable or wobbly complaint: knee injury Onset (ago): hour(s) Place: home Severity: moderate Relieving factors: rest Exacerbating factors: movement and palpation Context: fall Associated symptoms: swelling Other symptoms: none Related Data Previous Rx's Medication Instructions Recorded montelukast 10 mg tablet 10 mg PO BEDTIME #30 tab 04/08/19 fluticasone furoate 200 1 inhalation INHALATION DAILY #60 08/13/19 mcg-vilanterol 25 mcg/dose each inhalation powder ipratropium 20 mcg-albuterol 100 1 puff INHALATION QID #4 gram 08/13/19 mcg/actuation mist for inhalation albuterol sulfate 2.5 mg INHALATION QID PRN #75 ml 09/21/19 citalopram 20 mg tablet 20 mg PO DAILY #90 tab 03/08/20 spironolactone 100 mg tablet 100 mg PO DAILY #90 tab 03/08/20 losartan 50 mg tablet 75 mg PO DAILY #135 tab 07/11/20 phentermine 37.5 mg tablet 37.5 mg PO DAILY #90 tab 09/26/20 prednisone 50 mg tablet 50 mg PO DAILY #5 tab 12/19/20 oxycodone-acetaminophen 5 mg-325 1 tab PO TID PRN #90 tab 01/05/21 mg tablet ketorolac 10 mg PO Q6H PRN #14 tab 01/28/21 Allergies Allergy/AdvReac Type Severity Reaction Status Date / Time Iodine and Iodide Containing Allergy Severe HIVES-ANAPHYLAXSIS Verified 01/28/21 14:58 Produc AND HIVES [IODINE AND IODIDE CONTAINING PRODUC] Penicillins [PENICILLINS] Allergy Severe HIVES-ANAPH Verified 01/28/21 14:58 LAXYSIS-HIV ES EWA Inhibitors AdvReac Intermediate Cough Verified 01/28/21 14:58 Review of Systems Constitutional Constitutional: Denies chills, Denies fatigue, Denies fever(s), Denies frequent falls, Denies lethargy and Denies weakness Eyes Eyes: Denies change in vision, Denies eye discharge, Denies irritation and Denies loss of vision ENT Ears, Nose, Mouth, and Throat: Denies change in voice, Denies dizziness, Denies neck pain, Denies sore throat and Denies throat swelling Cardiovascular Cardiovascular: Denies chest pain, Denies irregular heart rhythm, Denies lightheadedness, Denies palpitations, Denies dyspnea, Denies dyspnea on exertion and Denies orthopnea Respiratory Respiratory: Denies cough, Denies dyspnea, Denies dyspnea on exertion and Denies wheezing Gastrointestinal Gastrointestinal: Denies abdominal pain, Denies change in bowel habits, Denies diarrhea, Denies nausea and Denies vomiting Musculoskeletal Musculoskeletal: Reports arthralgias, Reports joint swelling, Reports limited range of motion, Denies neck pain and Denies numbness Integumentary/Breasts Skin/Breast: Denies pruritus, Denies erythema, Denies rash and Denies wounds Neurologic Neurologic: Denies behavioral changes, Denies confusion, Denies dizziness, Denies frequent falls, Denies loss of vision, Denies numbness and Denies weakness Psychiatric Psychiatric: Denies anxiety, Denies behavioral changes, Denies confusion, Denies depression, Denies homicidal ideation and Denies suicidal ideation Endocrine Endocrine: Denies fatigue, Denies flushing and Denies palpitations Hematologic/Lymphatic Hematologic/Lymphatic: Denies easy bruising Allergic/Immunologic Allergic/Immunologic: Denies urticaria, Denies throat swelling and Denies wheezing Patient History Medical History Ankle pain (2014) Arthritis Asthma Chronic low back pain Chronic pain syndrome Degenerative joint disease of knee Edema Environmental allergies Foot pain Hordeolum externum (stye) Hypertension (1999) Hypothyroidism (2014) Kidney stones (~2007) Lumbosacral spondylosis Osteoarthritis (2000) Precancerous skin lesion Prolapsed bladder Tinea pedis Urinary incontinence (2012) Vitamin D deficiency Surgical History Anesthesia History of hernia surgery Status post breast biopsy Status post hysterectomy (1999) Status post insertion of intrathecal pump (~2012) Family History Father Diabetes mellitus Heart disease Hypertension Grandfather Heart disease Cancer Heart attack Grandmother Diabetes mellitus Breast cancer Mother Diabetes mellitus Heart disease Hypertension High cholesterol Social History household members: significant other Smoking Status: Never smoker second hand exposure: No alcohol intake: current substance use type: does not use Smoking Status: Never smoker alcohol intake frequency: holidays/special occasions only Substance Use Type: does not use Exam Narrative Exam Narrative: GEN: AOx3 and in mild distress EYES: Pupils are equal, round, and reactive to light and accommodation. Extraoccular muscles are intact bilaterally. There is no subconjunctival hemorrhage or exudate. CHEST: Lungs are clear to auscultation bilaterally and free of wheezes, rales, or rhonchi. Heart rate is regular rhythm, there are no murmurs, clicks, rubs, or gallops. There is no chest wall tenderness. ABD: Abdomen is soft and nontender. There is no guarding or rebound. Bowel sounds are normal in all 4 quadrants. There is no mass or organomegaly. EXT: Decreased range of motion of left knee secondary to pain, perhaps a minimal effusion but nothing significant. Mild medial joint line tenderness, no significant ligamentous instability. This is closed, isolated neurovascularly intact SKIN: Warm, pink, and dry. No erythema or rash Initial Vital Signs Initial Vital Signs: Vital Signs Temperature 97.9 F 01/28/21 15:00 Pulse Rate 96 H 01/28/21 15:00 Respiratory Rate 20 01/28/21 15:00 Blood Pressure 204/114 H 01/28/21 15:00 Pulse Oximetry 97 01/28/21 15:00 Course Orders Ordered: ED Orders 01/28/21 14:59 XR knee LT 3V Stat Vital Signs Vital signs: Vital Signs - 8 hr 01/28/21 15:00 Temperature 97.9 F Pulse Rate 96 H Respiratory Rate 20 Blood Pressure 204/114 H Pulse Oximetry 97 MDM - Extremity Injury (Lower) Imaging Data Extremity x-ray #1: Radiologist's Impression: Imelda Cosby 50 F [address] [id number] ReportSigned Patient: Imelda Cosby HMR#: [id number]: 1970Acct:[id number]/Sex: 50 / FDate of Service: 01/28/21Loc: EDAccession Number: [id number] Procedure: XR knee LT 3V Ordering Provider: Rubén Velasquez D.O. PROCEDURE: XR KNEE LT 3V INDICATIONS: LEFT KNEE PAIN AFTER A FALL TECHNIQUE: 3 views of the knee were acquired. COMPARISON: [facility], [place], XR KNEE LT 3V, 09/26/2020, 10:56. FINDINGS: Bones: No fractures or dislocations. No suspicious bony lesions. Severe tricompartmental knee joint degeneration. Soft tissues: Moderate joint effusion. No suspicious soft tissue calcifications. IMPRESSION: 1. No acute osseous abnormalities. 2. Severe tricompartmental degenerative joint disease. 3. Moderate knee joint effusion. Dictated by: Andrew Velez M.D. on 01/28/2021 at 15:43 Approved by: Andrew Velez M.D. on 01/28/2021 at 15:44 Discharge Plan Departure Patient Disposition: Home Clinical Impression: Injury of knee, left Qualifiers: Encounter type: initial encounter Qualified Code(s): S89.92XA - Unspecified injury of left lower leg, initial encounter Instructions: DI for Knee Pain Activity Restrictions/Additional Instructions: *You have been diagnosed with [left knee sprain, physical exam and x-ray are very reassuring and there is no evidence of fracture or dislocation] *What to do: *Please continue to take your regular medications as directed. [x ] New medication prescriptions sent to your pharmacy: [[facility]] [ ] New medication written as a paper prescription [ ] No new medications given *Please follow up with your primary care provider in 2-3 days, call for an appointment. Let them know you were seen in the Emergency Department and that we ask that you be seen in follow up. We will electronically transmit a record of today's note if your PCP is in our system *If you do not have a primary care provider please contact the [facility] Resource line at [phone]. They will ask some questions about your medical history and help get you set up with a doctor in the community. *Return to Emergency Department if you should have any new, worsening or concerning symptoms, such as [fever greater than 101 F, shaking chills, worsening pain, persistent vomiting or other bothersome symptoms] Prescriptions: New ketorolac 10 mg tablet 10 mg PO Q6H PRN (Reason: pain) Qty: 14 RF: 0 No Action montelukast 10 mg tablet 10 mg PO BEDTIME Qty: 30 RF: 0 spironolactone 100 mg tablet 100 mg PO DAILY Qty: 90 RF: 3 citalopram 20 mg tablet 20 mg PO DAILY Qty: 90 RF: 3 losartan 50 mg tablet 75 mg PO DAILY Qty: 135 RF: 2 oxycodone-acetaminophen 5-325 mg tablet 1 tab PO TID PRN (Reason: pain) Qty: 90 RF: 0 Combivent Respimat 20-100 mcg/actuation mist 1 puff INHALATION QID Qty: 4 RF: 11 Breo Ellipta 200-25 mcg/dose blister with device 1 inhalation INHALATION DAILY Qty: 60 RF: 3 albuterol sulfate 2.5 mg /3 mL (0.083 %) solution for nebulization 2.5 mg INHALATION QID PRN (Reason: SOB, wheezes, cough) Qty: 75 RF: 2 phentermine 37.5 mg tablet 37.5 mg PO DAILY Qty: 90 RF: 0 prednisone 50 mg tablet 50 mg PO DAILY Qty: 5 RF: 0 Referrals: Mary Zelaya ARNP [Primary Care Provider] -
== END 2021-01-28 16:04 | disposition home or self-care (01) ==
PROVIDERS: Emergency Provider Emergency Medicine; PCP Nurse Practitioner
DX: S89.92XA Unspecified injury of left lower leg, initial encounter (principal); W19.XXXA Unspecified fall, initial encounter
CPT/HCPCS: 73562; 99283

== ENCOUNTER → 2021-02-27 20:11 | Outpatient (CLI) | payer BC, SELFPAY ==
--- NOTE | 2021-02-27 20:14 | DI.RAD.S_ITS ---
PROCEDURE: XR TOE RT MIN 2V INDICATIONS: right 4th toe injury TECHNIQUE: 3 views of the right 4th toe(s) acquired. COMPARISON: None. FINDINGS: Bones: Mildly displaced fracture of the 4th proximal phalange which may extend into the 4th DIP joint. Large calcaneal bone spurs. Soft tissues: No suspicious soft tissue densities. IMPRESSION: 4th proximal phalange fracture. Dictated by: Taylor Bermudez MD, PhD on 02/28/2021 at 12:06 Approved by: Taylor Bermudez MD, PhD on 02/28/2021 at 12:08
== END ==
PROVIDERS: PCP Nurse Practitioner; Referring Provider Nurse Practitioner; Visit Provider Nurse Practitioner
DX: S92.511A Displaced fracture of proximal phalanx of right lesser toe(s), initial encounter for closed fracture (principal); M77.31 Calcaneal spur, right foot; X58.XXXA Exposure to other specified factors, initial encounter
CPT/HCPCS: 73660

== ENCOUNTER → 2021-03-29 10:57 | Outpatient (CLI) | payer BC, SELFPAY ==
--- NOTE | 2021-03-29 10:59 | DI.RAD.S_ITS ---
PROCEDURE: XR CHEST 2V INDICATIONS: cough, fever, asthma exacerbation TECHNIQUE: 2 views of the chest were acquired. COMPARISON: [facility], CT, CT SOFT TISSUE NECK W CON, 11/08/2020, 14:50. [facility], CR, XR CHEST 2V, 09/21/2019, 14:14. [facility], CR, XR CHEST 2V, 12/16/2018, 15:36. FINDINGS: Surgical changes and devices: None. Lungs and pleura: Mild airspace opacity at the right lower lobe. Prominent interstitial markings bilaterally. No consolidation. No pleural effusions or pneumothorax. Mediastinum: Mediastinal contours are unchanged. Heart size is at the upper limits of normal. Bones and chest wall: No suspicious bony abnormalities. Soft tissues appear unremarkable. IMPRESSION: Mild airspace opacity at the right lower lobe. Prominent interstitial markings. Findings could be seen in pneumonia. Atelectasis could have a similar appearance. Dictated by: Darryl Archibald M.D. on 03/29/2021 at 12:07 Approved by: Darryl Archibald M.D. on 03/29/2021 at 12:10
== END ==
PROVIDERS: PCP Nurse Practitioner; Referring Provider Nurse Practitioner; Visit Provider Nurse Practitioner
DX: R05 Cough (principal); J45.909 Unspecified asthma, uncomplicated; R50.9 Fever, unspecified; Z20.822 Contact with and (suspected) exposure to COVID-19
CPT/HCPCS: 71046; 87635

== ENCOUNTER → 2021-03-29 12:21 | Outpatient (ROUT) | payer BC, SELFPAY ==
[2021-03-29 12:42] LABS: COVID19 -Nasal RAPID Negative (Negative)
== END ==
PROVIDERS: PCP Nurse Practitioner
DX: Z20.822 Contact with and (suspected) exposure to COVID-19 (principal)
CPT/HCPCS: 87635

== ENCOUNTER → 2021-04-20 15:03 | Outpatient (CLI) | payer BC, SELFPAY ==
--- NOTE | 2021-04-20 15:05 | DI.RAD.S_ITS ---
PROCEDURE: XR CHEST 2V INDICATIONS: cough TECHNIQUE: 2 views of the chest were acquired. COMPARISON: [facility], , XR CHEST 2V, 03/29/2021, 11:08. FINDINGS: Surgical changes and devices: None. Lungs and pleura: Lungs are clear. No pleural effusions or pneumothorax. Mediastinum: Mediastinal contours are normal. Heart size is normal. Bones and chest wall: No suspicious bony abnormalities. Soft tissues appear unremarkable. IMPRESSION: Normal chest x-ray Approved by: Ayan Currie M.D. on 04/20/2021 at 15:11
== END ==
PROVIDERS: PCP Nurse Practitioner; Referring Provider Nurse Practitioner; Visit Provider Nurse Practitioner
DX: Z01.812 Encounter for preprocedural laboratory examination (principal); R05 Cough
CPT/HCPCS: 36415; 71046; 85018

== ENCOUNTER 2021-04-21 13:50 | Emergency (ER) | payer BC, SELFPAY ==
[2021-04-21 14:21] VITALS: BP 160/85; PULSE 75; RESP 22; TEMP 36.6; O2SAT 95; BMI 45.4
--- NOTE | 2021-04-21 14:28 | DI.RAD.S_ITS ---
PROCEDURE: XR CHEST 1V INDICATIONS: short of breath TECHNIQUE: One view of the chest was acquired. COMPARISON: [facility], CR, XR CHEST 2V, 04/20/2021, 15:17. FINDINGS: Surgical changes and devices: None. Lungs and pleura: Lungs are clear. No pleural effusions or pneumothorax. Mediastinum: Mediastinal contours appear normal. Heart size is normal. Bones and chest wall: No suspicious bony lesions. Overlying soft tissues appear unremarkable. IMPRESSION: No acute cardiopulmonary disease process. Dictated by: Taylor Bermudez MD, PhD on 04/21/2021 at 15:05 Approved by: Taylor Bermudez MD, PhD on 04/21/2021 at 15:08
[2021-04-21 15:45] LABS: Add Manual Diff / Slide Review NO; Basophils Absolute Auto 0 /uL (0-100); Basophils Percent Auto 0.4 % (0-2); Eosinophils Absolute Auto 0 /uL (0-450); Lymphocytes Absolute Auto 900 /uL (1100-4500); Lymphocytes Percent Auto 9.9 % (25-40); Mean Corpuscular HGB Conc 34.2 % (30-36); Mean Corpuscular Hemoglobin 32.4 PG (26-34); Monocytes Absolute Auto 200 /uL (0-900); Monocytes Percent Auto 1.6 % (3-14); Neutrophils Absolute Auto 8200 /uL (1500-7000); Neutrophils Percent Auto 88.1 % (50-75); Platelet Count 235 X10^3/uL (150-400); Red Cell Distribution Width 13.1 % (11.6-14.8); White Blood Cell Count 9.4 X10^3/uL (4.5-11.0)
[2021-04-21 15:58] LABS: Alanine Aminotransferase 28 IU/L (<35); Albumin 4.9 g/dL (3.5-5.0); Albumin Globulin Ratio 1.5 (1.0-2.8); Alkaline Phosphatase 62 U/L (38-126); Aspartate Aminotransferase 25 IU/L (14-36); BUN Creatinine Ratio 26.8 (6-22); Bilirubin Total 0.5 mg/dL (0.2-1.3); Blood Urea Nitrogen 19 mg/dL (7-17); Calcium 10.5 mg/dL (8.4-10.2); Carbon Dioxide 25 mmol/L (22-32); Chloride 101 mmol/L (98-107); Creatine Kinase 39 U/L (30-135); Estimated Glomerular Filt Rate > 60.0 mL/min (>60); Globulin 3.3 g/dL (1.7-4.1); Glucose 186 mg/dL (70-100); HEMOLYSIS < 15 (0-50); Lipase 79 U/L (23-300); Potassium 4.7 mmol/L (3.4-5.1); Sodium 137 mmol/L (137-145); Total Protein 8.2 g/dL (6.3-8.2)
[2021-04-21 16:09] LABS: NT-proBNP (BNP-Adult 18+) 47 pg/mL (<125); Troponin I < 0.012 ng/mL (0.01-0.034)
[2021-04-21 17:17] VITALS: BP 135/72; PULSE 77; RESP 20
--- NOTE | 2021-04-21 17:36 | ED.SOB ---
HPI - SOB/Dyspnea General Chief Complaint: Shortness of Breath/Dyspnea Stated Complaint: R/O Blood Clot sent From PCP Time Seen by Provider: 04/21/21 14:29 Source: patient Mode of arrival: Ambulatory Limitations: no limitations History of Present Illness HPI Narrative: 50-year-old female nonsmoker with history of asthma presents with family and at the request of her primary care provider. She has been struggling with wheezing, nonproductive cough and exertional dyspnea for upwards of a month. She has had multiple rounds of prednisone and is currently on doxycycline for presumed asthma exacerbation possible atypical pneumonia. She has had multiple negative COVID tests and is immunized. She has had no runny nose or sore throat. She denies any chest pain. She denies fever or chills. She has had nausea, vomiting or diarrhea. She denies lower extremity pain, swelling or redness. She denies any history of blood clots, recent travel or cancer. Her PCP sent her here for evaluation of possible pulmonary embolism. Related Data Previous Rx's Medication Instructions Recorded ipratropium 20 mcg-albuterol 100 1 puff INHALATION QID #4 gram 08/13/19 mcg/actuation mist for inhalation (Combivent Respimat) phentermine 37.5 mg tablet 37.5 mg PO DAILY #90 tab 09/26/20 oxycodone-acetaminophen 5 mg-325 1 tab PO TID PRN #90 tab 03/24/21 mg tablet albuterol sulfate 2.5 mg INHALATION QID PRN #75 ml 03/28/21 citalopram 20 mg tablet 20 mg PO DAILY #90 tab 03/28/21 losartan 50 mg tablet 75 mg PO DAILY #135 tab 03/28/21 montelukast 10 mg tablet 10 mg PO BEDTIME #30 tab 03/28/21 spironolactone 100 mg tablet 100 mg PO DAILY #90 tab 03/28/21 promethazine-DM 6.25 mg-15 mg/5 mL 5 ml PO Q4-6H PRN #118 ml 03/31/21 oral syrup doxycycline hyclate 100 mg tablet 100 mg PO DAILY #20 tab 04/13/21 fluticasone 500 mcg-salmeterol 50 1 inh INHALATION Q12H #60 ea 04/19/21 mcg/dose blistr powdr for inhalation prednisone 10 mg tablet See Rx Instructions PO DAILY #20 04/19/21 tab Allergies Allergy/AdvReac Type Severity Reaction Status Date / Time Iodine and Iodide Containing Allergy Severe HIVES-ANAPHYLAXSIS Verified 04/21/21 14:26 Produc AND HIVES [IODINE AND IODIDE CONTAINING PRODUC] Penicillins [PENICILLINS] Allergy Severe HIVES-ANAPH Verified 04/21/21 14:26 LAXYSIS-HIV ES EWA Inhibitors AdvReac Intermediate Cough Verified 04/21/21 14:26 Review of Systems Review of Systems Narrative: GENERAL: Denies chills, fatigue, malaise, fever, sweats. HEENT: Denies sinus pain, ear pain, sore throat, difficulty swallowing, dizziness. RESPIRATORY: See HPI CARDIOVASCULAR: Denies chest pain, palpitations, orthopnea, edema, GASTROINTESTINAL: Denies nausea, vomiting, abdominal pain, diarrhea, constipation, melena. : Denies dysuria, frequency, incontinence, hematuria, urinary retention. MUSCULOSKELETAL: denies weakness, joint pain, or bony pain SKIN: Denies rash, skin lesions, or other NEUROLOGIC: Denies weakness, headache, numbness, change in speech, confusion, seizures, incoordination. PSYCHIATRIC: No concerning psychosocial issues. 12 point review of systems is negative except for those stated above Patient History Medical History Ankle pain (2014) Arthritis Asthma Chronic low back pain Chronic pain syndrome Degenerative joint disease of knee Edema Environmental allergies Foot pain Hordeolum externum (st) Hypertension (1999) Hypothyroidism (2013) Kidney stones (~2006) Lumbosacral spondylosis Osteoarthritis (2000) Precancerous skin lesion Prolapsed bladder Tinea pedis Urinary incontinence (2012) Vitamin D deficiency Surgical History Anesthesia History of hernia surgery Status post breast biopsy Status post hysterectomy (1999) Status post insertion of intrathecal pump (~2012) Family History Father Diabetes mellitus Heart disease Hypertension Grandfather Heart disease Cancer Heart attack Grandmother Diabetes mellitus Breast cancer Mother Diabetes mellitus Heart disease Hypertension High cholesterol Social History household members: significant other Smoking Status: Never smoker second hand exposure: No alcohol intake: current substance use type: does not use Smoking Status: Never smoker alcohol intake frequency: holidays/special occasions only Substance Use Type: does not use Exam Narrative Exam Narrative: GENERAL: [50] year old patient appears stated age. Well-developed patient, in mild distress. HEAD: Atraumatic. Normocephalic. EYES: Pupils equal round and reactive. Extraocular motions intact. No scleral icterus. No injection or drainage. ENT: Nose without bleeding, purulent drainage. Throat without erythema, tonsillar hypertrophy or exudate. Airway patent. NECK: Trachea midline. Non tender CARDIOVASCULAR: Regular rate and rhythm without murmurs, gallops, or rubs. RESPIRATORY: Clear to auscultation. Breath sounds equal bilaterally. No wheezes, rales, or rhonchi. Deep breath illicits a bronchospastic cough GASTROINTESTINAL: Abdomen soft, non-tender, nondistended. EXTREMITIES: No edema or joint tenderness. BACK: Nontender without deformity or crepitance. No flank tenderness. NEURO: AOx3. SKIN: No rash or erythema of visible areas Initial Vital Signs Initial Vital Signs: Vital Signs Temperature 97.9 F 04/21/21 14:21 Pulse Rate 75 04/21/21 14:21 Respiratory Rate 22 04/21/21 14:21 Blood Pressure 160/85 H 04/21/21 14:21 Pulse Oximetry 95 04/21/21 14:21 Scores PERC Score Age greater than or equal to 50 years: Yes Heart rate greater than or equal to 100 bpm: No Room Air O2 Sat less than 95%: No Unilateral leg swelling: No Recent trauma or surgery: No Hemoptysis: No Prior PE or DVT: No Hormone Use: No Total PERC Score: 1 Wells' Criteria for PE Clinical signs and symptoms of DVT: No PE is #1 Dx or equally likely: No Heart rate > 100: No Immobilization at least 3 days or surg in previous 4 weeks: No History of PE or DVT: No Hemoptysis: No Malignancy w/Treatment within 6 months or palliative: No Wells' PE Score total: 0 Course Course Course Narrative: Patient has a negative D-dimer. Extensive discussion with the patient about the low likelihood of pulmonary embolism given the utilization of Kin Mcgee's PE algorithm. Orders Ordered: ED Orders 04/21/21 18:38 CT chest wo con Stat 04/21/21 19:25 Respiratory Panel (Film Array) Stat Vital Signs Vital signs: Vital Signs - 8 hr 04/21/21 19:37 04/21/21 19:38 Pulse Rate 73 72 Respiratory Rate 26 H 18 Blood Pressure 139/76 Pulse Oximetry 94 95 MDM - SOB/Dyspnea Lab Data Result diagrams: 04/21/21 15:32 04/21/21 15:32 Labs: Lab Results 04/21/21 04/21/21 04/21/21 Range/Units 15:32 15:32 15:32 WBC 9.4 (4.5-11.0) X10^3/uL RBC 4.00 (4.0-5.2) X10^6/uL Hgb 13.0 (12.0-16.0) g/dL Hct 38.0 (36-46) % MCV 95.0 (80-100) fL MCH 32.4 (26-34) PG MCHC 34.2 (30-36) % RDW 13.1 (11.6-14.8) % Plt Count 235 (150-400) X10^3/uL Neut % (Auto) 88.1 H (50-75) % Lymph % (Auto) 9.9 L (25-40) % Pershing % (Auto) 1.6 L (3-14) % Eos % (Auto) 0.0 L (2-4) % Baso % (Auto) 0.4 (0-2) % Neut # (Auto) 8200 H (1897-2787) /uL Lymph # (Auto) 900 L (9660-6547) /uL Pershing # (Auto) 200 (0-900) /uL Eos # (Auto) 0 (0-450) /uL Baso # (Auto) 0 (0-100) /uL PT Cancelled INR Cancelled APTT Cancelled D-Dimer (<230) ng/mL Sodium 137 (137-145) mmol/L Potassium 4.7 (3.4-5.1) mmol/L Chloride 101 (98-107) mmol/L Carbon Dioxide 25 (22-32) mmol/L BUN 19 H (7-17) mg/dL Creatinine 0.71 (0.52-1.04) mg/dL Estimated GFR > 60.0 (>60) mL/min BUN/Creatinine Ratio 26.8 H (6-22) Glucose 186 H (70-100) mg/dL Calcium 10.5 H (8.4-10.2) mg/dL Total Bilirubin 0.5 (0.2-1.3) mg/dL AST 25 (14-36) IU/L ALT 28 (<35) IU/L Alkaline Phosphatase 62 (38-126) U/L Total Creatine Kinase 39 (30-135) U/L CK-MB (CK-2) TNP CK-MB (CK-2) Rel Index TNP Troponin I < 0.012 (0.01-0.034) ng/mL NT-Pro-B Natriuret Pep 47 (<125) pg/mL Total Protein 8.2 (6.3-8.2) g/dL Albumin 4.9 (3.5-5.0) g/dL Globulin 3.3 (1.7-4.1) g/dL Albumin/Globulin Ratio 1.5 (1.0-2.8) Lipase 79 (23-300) U/L Chlamy pneumoniae PCR (Not Detect) Adenovirus (PCR) (Not Detect) B. pertussis DNA (PCR) (Not Detecte) B.parapertussis DNA PCR (Not Detecte) Coronavirus OC43 (PCR) (Not Detect) Coronavirus HKU1 (PCR) (Not Detect) Coronavirus 229E (PCR) (Not Detect) SARS-CoV-2 (PCR) (Not Detecte) Coronavirus NL63 (PCR) (Not Detect) Human Metapneumovir PCR (Not Detect) Influenza Type A (PCR) (Not Detect) Influenza Type B (PCR) (Not Detect) M. pneumoniae (PCR) (Not Detect) Parainfluenza 1 (PCR) (Not Detect) Parainfluenza 2 (PCR) (Not Detect) Parainfluenza 3 (PCR) (Not Detect) Parainfluenza 4 (PCR) (Not Detect) RSV (PCR) (Not Detect) Entero/Rhino (PCR) (Not Detect) 04/21/21 04/21/21 Range/Units 17:47 19:25 WBC (4.5-11.0) X10^3/uL RBC (4.0-5.2) X10^6/uL Hgb (12.0-16.0) g/dL Hct (36-46) % MCV (80-100) fL MCH (26-34) PG MCHC (30-36) % RDW (11.6-14.8) % Plt Count (150-400) X10^3/uL Neut % (Auto) (50-75) % Lymph % (Auto) (25-40) % Pershing % (Auto) (3-14) % Eos % (Auto) (2-4) % Baso % (Auto) (0-2) % Neut # (Auto) (2931-6222) /uL Lymph # (Auto) (5515-0726) /uL Pershing # (Auto) (0-900) /uL Eos # (Auto) (0-450) /uL Baso # (Auto) (0-100) /uL PT INR APTT D-Dimer < 200 (<230) ng/mL Sodium (137-145) mmol/L Potassium (3.4-5.1) mmol/L Chloride (98-107) mmol/L Carbon Dioxide (22-32) mmol/L BUN (7-17) mg/dL Creatinine (0.52-1.04) mg/dL Estimated GFR (>60) mL/min BUN/Creatinine Ratio (6-22) Glucose (70-100) mg/dL Calcium (8.4-10.2) mg/dL Total Bilirubin (0.2-1.3) mg/dL AST (14-36) IU/L ALT (<35) IU/L Alkaline Phosphatase (38-126) U/L Total Creatine Kinase (30-135) U/L CK-MB (CK-2) CK-MB (CK-2) Rel Index Troponin I (0.01-0.034) ng/mL NT-Pro-B Natriuret Pep (<125) pg/mL Total Protein (6.3-8.2) g/dL Albumin (3.5-5.0) g/dL Globulin (1.7-4.1) g/dL Albumin/Globulin Ratio (1.0-2.8) Lipase (23-300) U/L Chlamy pneumoniae PCR Not detected (Not Detect) Adenovirus (PCR) Not detected (Not Detect) B. pertussis DNA (PCR) Not detected (Not Detecte) B.parapertussis DNA PCR Not detected (Not Detecte) Coronavirus OC43 (PCR) Not detected (Not Detect) Coronavirus HKU1 (PCR) Not detected (Not Detect) Coronavirus 229E (PCR) Not detected (Not Detect) SARS-CoV-2 (PCR) Not detected (Not Detecte) Coronavirus NL63 (PCR) Not detected (Not Detect) Human Metapneumovir PCR Not detected (Not Detect) Influenza Type A (PCR) Not detected (Not Detect) Influenza Type B (PCR) Not detected (Not Detect) M. pneumoniae (PCR) Not detected (Not Detect) Parainfluenza 1 (PCR) Not detected (Not Detect) Parainfluenza 2 (PCR) Not detected (Not Detect) Parainfluenza 3 (PCR) Not detected (Not Detect) Parainfluenza 4 (PCR) Not detected (Not Detect) RSV (PCR) Not detected (Not Detect) Entero/Rhino (PCR) Not detected (Not Detect) Imaging Data CT scan - chest: Radiologist's Impression: [address] [address] [address] Scan Report Signed Patient: Imelda Cosby MR#: [id number] : 1970 Acct:[id number] Age/Sex: 50 / F Date of Service: 04/21/21 Loc: ED Accession Number: [id number] ?? Procedure: CT chest wo con Ordering Provider: Rubén Velasquez D.O. PROCEDURE:? CT CHEST WO CON ? INDICATIONS:? cough, SOB, hypoxia, sent by PCP ? TECHNIQUE: Noncontrast 5 mm thick sections acquired from the pulmonary apices to the posterior costophrenic angles.? 1 mm lung window, 5 mm thick coronal and sagittal and 7 mm axial MIP reformats were then acquired.? For radiation dose reduction, the following was used:? automated exposure control, adjustment of mA and/or kV according to patient size.? ? COMPARISON:? None. ? FINDINGS:? Image quality:? Excellent.? ? Lungs and pleura:? No acute air space opacities.? No pleural effusions or pneumothorax.? Central and peripheral airways are patent and normal in caliber.? ? Mediastinum:? Heart size is normal.? No pericardial effusion.? No mediastinal adenopathy by size criteria.? Thoracic aorta and central pulmonary arteries are normal in size.? Esophagus is normal in caliber.? No hiatal hernia.? ? Bones and chest wall:? No suspicious bony lesions.? An epidural nerve stimulator is seen with the tip terminating in the midthoracic level.? No vertebral body compression fractures.? No axillary or supraclavicular adenopathy by size criteria.? Thyroid gland is partially imaged and the visible portion is grossly normal. .? ? Abdomen:? Visualized upper abdominal solid organs and bowel loops appear normal in the absence of contrast.? ? IMPRESSION:? 1. No CT evidence of acute pulmonary process. 2. Expected location of epidural nerve stimulator.? ? ? Dictated by: Kalani Castillo M.D. on 04/21/2021 at 19:18 ? ? Approved by: Kalani Castillo M.D. on 04/21/2021 at 19:22 ? MDM Narrative Medical decision making narrative: Multiple etiologies for patient's symptoms considered including: [Pneumonia versus asthma exacerbation versus environmental allergens versus myocardial infarction versus CHF versus other Multiple causes of chest pain considered including WI, PE, pneumothorax, pneumonia, aortic dissection, and pleurisy. Patient reports no radiation, no diaphoresis, no provocation with exertion, and no vomiting. Troponin unremarkable, BNP normal. No evidence of pneumonia or fluid overload on imaging. No indication for CT angiogram given negative D-dimer, along with patient's reported allergy to IV contrast is or why elected to perform a noncontrast study. Findings and discharge diagnosis discussed with patient/family followed by verbalization of understanding Return precautions discussed with patient/family whom verbalize understanding. Discharge Plan Departure Patient Disposition: Home Clinical Impression: Atypical pneumonia Asthma exacerbation Qualifiers: Asthma severity: moderate Asthma persistence: persistent Qualified Code(s): J45.41 - Moderate persistent asthma with (acute) exacerbation Instructions: DI for Asthma -- Adult, DI for Shortness of Breath Activity Restrictions/Additional Instructions: *You have been diagnosed with [acute dyspnea, asthma exacerbation, likely atypical pneumonia. Lab work is very reassuring and suggests a very low likelihood of a blood clot. *What to do: *Please continue to take your regular medications as directed. [ ] New medication prescriptions sent to your pharmacy: [ ] [ ] New medication written as a paper prescription [ x] No new medications given *Please follow up with your primary care provider in 2-3 days, call for an appointment. Let them know you were seen in the Emergency Department and that we ask that you be seen in follow up. We will electronically transmit a record of today's note if your PCP is in our system. As we discussed, it seems reasonable to talk with your primary care provider about potentially arranging for an outpatient cardiac workup which would include a stress test and echocardiogram. *Return to Emergency Department if you should have any new, worsening or concerning symptoms, such as [fever greater than 101 F, shaking chills, worsening pain, persistent vomiting or other bothersome symptoms] Prescriptions: No Action citalopram 20 mg tablet 20 mg PO DAILY Qty: 90 RF: 1 prednisone 10 mg tablet See Rx Instructions PO DAILY Qty: 20 RF: 0 fluticasone propion-salmeterol 500-50 mcg/dose blister with device 1 inh inhalation Q12H Qty: 60 RF: 11 Combivent Respimat 20-100 mcg/actuation mist 1 puff INHALATION QID Qty: 4 RF: 11 phentermine 37.5 mg tablet 37.5 mg PO DAILY Qty: 90 RF: 0 oxycodone-acetaminophen 5-325 mg tablet 1 tab PO TID PRN (Reason: pain) Qty: 90 RF: 0 albuterol sulfate 2.5 mg /3 mL (0.083 %) solution for nebulization 2.5 mg INHALATION QID PRN (Reason: SOB, wheezes, cough) Qty: 75 RF: 2 losartan 50 mg tablet 75 mg PO DAILY Qty: 135 RF: 2 montelukast 10 mg tablet 10 mg PO BEDTIME Qty: 30 RF: 0 spironolactone 100 mg tablet 100 mg PO DAILY Qty: 90 RF: 3 promethazine-DM 6.25-15 mg/5 mL syrup 5 ml PO Q4-6H PRN (Reason: cough) Qty: 118 RF: 0 doxycycline hyclate 100 mg tablet 100 mg PO DAILY Qty: 20 RF: 0 Referrals: Mary Zelaya ARNP [Primary Care Provider] -
[2021-04-21 18:17] LABS: D Dimer < 200 ng/mL (<230)
--- NOTE | 2021-04-21 18:38 | DI.CT.S_ITS ---
PROCEDURE: CT CHEST WO CON INDICATIONS: cough, SOB, hypoxia, sent by PCP TECHNIQUE: Noncontrast 5 mm thick sections acquired from the pulmonary apices to the posterior costophrenic angles. 1 mm lung window, 5 mm thick coronal and sagittal and 7 mm axial MIP reformats were then acquired. For radiation dose reduction, the following was used: automated exposure control, adjustment of mA and/or kV according to patient size. COMPARISON: None. FINDINGS: Image quality: Excellent. Lungs and pleura: No acute air space opacities. No pleural effusions or pneumothorax. Central and peripheral airways are patent and normal in caliber. Mediastinum: Heart size is normal. No pericardial effusion. No mediastinal adenopathy by size criteria. Thoracic aorta and central pulmonary arteries are normal in size. Esophagus is normal in caliber. No hiatal hernia. Bones and chest wall: No suspicious bony lesions. An epidural nerve stimulator is seen with the tip terminating in the midthoracic level. No vertebral body compression fractures. No axillary or supraclavicular adenopathy by size criteria. Thyroid gland is partially imaged and the visible portion is grossly normal. . Abdomen: Visualized upper abdominal solid organs and bowel loops appear normal in the absence of contrast. IMPRESSION: 1. No CT evidence of acute pulmonary process. 2. Expected location of epidural nerve stimulator. Dictated by: Kalani Castillo M.D. on 04/21/2021 at 19:18 Approved by: Kalani Castillo M.D. on 04/21/2021 at 19:22
[2021-04-21 19:37] VITALS: PULSE 73; RESP 26; O2SAT 94
[2021-04-21 19:38] VITALS: BP 139/76; PULSE 72; RESP 18; O2SAT 95
[2021-04-21 20:26] LABS: Adenovirus Not Detected (Not Detect); B. parapertussis Not Detected (Not Detecte); Bordetella pertussis Not Detected (Not Detecte); Chlamydophila pneumoniae Not Detected (Not Detect); Coronavirus 229E Not Detected (Not Detect); Coronavirus HKU1 Not Detected (Not Detect); Coronavirus NL 63 Not Detected (Not Detect); Coronavirus OC43 Not Detected (Not Detect); Human Metapneumovirus Not Detected (Not Detect); Human Rhinovirus/Enterovirus Not Detected (Not Detect); Influenza A Not Detected (Not Detect); Influenza B Not Detected (Not Detect); Mycoplasma pneumoniae Not Detected (Not Detect); Parainfluenza Virus 1 Not Detected (Not Detect); Parainfluenza Virus 2 Not Detected (Not Detect); Parainfluenza Virus 3 Not Detected (Not Detect); Parainfluenza Virus 4 Not Detected (Not Detect); Respiratory Syncytial Virus Not Detected (Not Detect); SARS- CoV-2 Not Detected (Not Detecte)
== END 2021-04-21 20:01 | disposition home or self-care (01) ==
PROVIDERS: Emergency Medicine; Emergency Provider Emergency Medicine; PCP Nurse Practitioner
DX: J18.9 Pneumonia, unspecified organism (principal); J45.41 Moderate persistent asthma with (acute) exacerbation; R06.02 Shortness of breath; R09.02 Hypoxemia; Z20.822 Contact with and (suspected) exposure to COVID-19
CPT/HCPCS: 71045; 71250; 80053; 82550; 83690; 83880; 84484; 85025; 85379; 87633; 93005; 99283; 99284

== ENCOUNTER → 2021-04-26 08:49 | Outpatient (CLI) | payer BC, SELFPAY ==
--- NOTE | 2021-04-26 | DI.MRI.S_ITS ---
PROCEDURE: MR KNEE LT WO CON INDICATIONS: Pain in left knee TECHNIQUE: Noncontrast sagittal PD fast spin echo and T2 fast spin echo with fat saturation, sagittal 3-D FLASH with fat saturation; coronal T1 spin echo and PD fast spin echo with fat saturation, and axial PD fast spin echo with fat saturation through the knee. COMPARISON: None. FINDINGS: Menisci: Medial meniscus: Circumferential medial meniscal tear involving the posterior root, posterior horn and body. There is partial extrusion. Lateral meniscus: Partially discoid appearance of lateral meniscus incidentally noted. No discrete tear by strict criteria mom osteoarthritis. Cruciate ligaments: Anterior cruciate ligament: Thickened appearance suggestive of low-grade chronic partial sprain. Posterior cruciate ligament: Intact. Medial structures: The medial collateral ligament: There is medial bowing of the medial collateral ligament, with mild internal signal changes and no complete rupture. There is adjacent soft tissue edema. The appearance could reflect reactive changes to medial compartment pathology, versus low-grade sprain of the MCL. Semimembranosus tendon: Intact. Visualized pes anserinus tendons: Intact. Bursal fluid: none. Lateral structures: The lateral collateral ligament intact. Biceps femoris tendon appears intact. Popliteus tendon grossly unremarkable. Iliotibial band appears intact. Anterior structures: Quadriceps tendon: Intact. Medial patellofemoral ligament: Intact. Lateral patellofemoral ligament: Intact. Patellar tendon: Mild tendinopathy. Anterior soft tissues: Prepatellar and superficial infrapatellar subcutaneous edema/fluid. Deep infrapatellar region: Normal. Bones and cartilage: Marrow: No focal marrow contusion or discrete low signal fracture line. Diffuse bulky osteophyte formation. Medial compartment: Near full-thickness loss of the femoral and tibial articular cartilage. Lateral compartment: Diffuse surface fraying of the femoral and tibial cartilage without focal defect. Patellofemoral compartment: Diffuse partial-thickness loss and surface fraying of the patellar and femoral trochlear cartilage. Joint space: Effusion: Moderate joint effusion. Popliteal fossa: No Jackman's cyst. Loose bodies: None. IMPRESSION: Complex circumferential medial meniscal tear with partial extrusion as above. Adjacent MCL changes as above. Suspect low-grade chronic sprain/partial rupture of the ACL, in particular probably involving the posterolateral bundle. Degenerative joint disease most pronounced in the medial compartment as above Moderate joint effusion Dictated by: Enoc Silveira M.D. on 04/26/2021 at 10:37 Approved by: Enoc Silveira M.D. on 04/26/2021 at 10:55
== END ==
PROVIDERS: PCP Nurse Practitioner; Referring Provider Orthopaedic Surgery; Visit Provider Orthopaedic Surgery
DX: M25.562 Pain in left knee (principal); S83.232A Complex tear of medial meniscus, current injury, left knee, initial encounter; M17.12 Unilateral primary osteoarthritis, left knee; M25.462 Effusion, left knee
CPT/HCPCS: 73721

== ENCOUNTER → 2021-04-27 12:05 | Outpatient (CLI) | payer BC, SELFPAY ==
[2021-04-27 13:06] LABS: COVID19 -Nasal RAPID Negative (Negative)
== END ==
PROVIDERS: PCP Nurse Practitioner; Referring Provider Internal Medicine; Visit Provider Internal Medicine
DX: Z20.822 Contact with and (suspected) exposure to COVID-19 (principal)
CPT/HCPCS: 87635; C9803

== ENCOUNTER → 2021-04-28 10:55 | Outpatient (CLI) | payer BC, SELFPAY ==
--- NOTE | 2021-05-05 08:29 | PM.PFT.1 ---
Pulmonary Function Test Referral & Results Date Patient Seen: 04/28/21 Requesting provider: Mary Zelaya Results: The spirometry demonstrates an FVC of 3.37 L which is 86% of predicted. The FEV1 was measured at 2.59 L which is 84% of predicted. The FEV1/FVC ratio was 77 which is a 95% of predicted. Following the administration of bronchodilator there was a 37% improvement in FEF 25-75% Lung volumes show an SVC of 3.52 L which is 99% of predicted. The diffusing capacity was measured at 25.21 which is 89% of predicted. The maximum voluntary ventilation was minimally reduced Interpretation: This study may demonstrate very very mild obstructive lung disease based on minimal reduction FEV1 although FEV1/FVC ratio is preserved, there was benefit in small airway flow post bronchodilator. However shape a flow volume loop does argue against the presence of obstructive lung disease. Lung volumes and diffusing capacity should be considered normal Clinical correlation suggested
== END ==
PROVIDERS: PCP Nurse Practitioner; Referring Provider Nurse Practitioner; Visit Provider Nurse Practitioner
DX: J45.30 Mild persistent asthma, uncomplicated (principal); J98.8 Other specified respiratory disorders
CPT/HCPCS: 94060; 94726; 94729

== ENCOUNTER → 2021-05-09 10:55 | Outpatient (CLI) | payer BC, SELFPAY | PROVIDERS: PCP Nurse Practitioner; Referring Provider Nurse Practitioner; Visit Provider Nurse Practitioner | DX: R06.02 Shortness of breath (principal) | CPT/HCPCS: 93005; 93010 ==

== ENCOUNTER → 2021-06-14 07:46 | Outpatient (CLI) | payer BC, SELFPAY ==
--- NOTE | 2021-06-16 14:17 | PM.TREADMILL ---
Cardiac Stress Test Report Referral & Results Date Patient Seen: 06/16/21 Requesting provider: Mary Zelaya Indication: Shortness of breath Rest ECG: Unremarkable Procedure Note: Today following both written and verbal informed consent the patient was exercised according to a standard Clarke protocol patient went for a total of 4 minutes 50 seconds achieving a maximum heart rate of 147 maximum systolic blood pressure of 202. This is approximately 7.0 METS. Exercise was terminated at this point because of inability the patient to continue due to fatigue and dyspnea. Patient was also given Cardiolite through a previously started Hep-Lock IV by the diagnostic imaging staff approximately 1 minute prior to the cessation of exercise. There are no ST-T segment changes Normal heart rate and blood pressure response to exercise Function aerobic impairment rates about 28% on the sedentary scale Impression: No evidence of ischemia based on usual ECG criteria Limited exercise capacity Please see perfusion imaging report as well Please note: Actual ECG tracings can be found in the PACS system.
--- NOTE | 2021-06-16 17:58 | DI.NM.S_ITS ---
DATE OF SERVICE: 06/14/2021 PROCEDURE PERFORMED: Exercise treadmill stress and rest myocardial perfusion imaging with gating to assess ejection fraction and regional wall motion. ORDERING PROVIDER: SHAE Black. INDICATIONS: The patient is a 50-year-old morbidly obese female with exertional dyspnea. CARDIAC STRESS: The patient was able to exercise for 4 minutes, 50 seconds on a standard Clarke protocol suggesting moderate-severely reduced exercise capacity with an TAMIA of +36%. She had an accelerated heart rate response to exercise with a resting heart rate of 82 BPM, increasing to 110 BPM after 1 minute of exercise and reaching a maximum of 147 BPM (87% of her predicted maximum). She had a mild hypertensive blood pressure response with a resting blood pressure of 126/94, increasing to a maximum of 202/100. She had no chest discomfort and stopped because of dyspnea. Her resting ECG shows sinus rhythm with normal ST segments. There are no significant ST-segment shifts or arrhythmias with stress. At 3 minutes, 45 seconds of exercise at a heart rate of 140 BPM, 27.2 millicuries of technetium-99m Myoview was injected and she was imaged 15 minutes later using a gated SPECT acquisition protocol. Two days prior while at rest, she had been injected with 26.0 millicuries of technetium-99m Myoview was imaged 20 minutes later, again using a gated SPECT acquisition protocol. FINDINGS: 1. Raw data: There is fair myocardial tracer uptake but significant breast shadows are noted which likely produce attenuation artifact. The lung/heart ratio is normal at 0.30 with a normal TID ratio of 0.81. 2. Quantitated gated SPECT: Post-stress ejection fraction is estimated at 72% without any focal wall motion abnormality and specifically the anterior wall and anterior septum have normal contractility. The resting ejection fraction is 65% and appears unchanged. Resting end-diastolic volume is moderately increased at 196 mL. 3. Myocardial perfusion imaging: Immediate post-stress supine images shows a small, moderate perfusion defect in the mid anterior septum extending slightly into the apex. This would be in a pattern that could be consistent with breast attenuation artifact supported by the prone images where this defect significantly improves but does not completely resolve on prone imaging. The resting images show an identical perfusion pattern without any areas of improvement. IMPRESSION: 1. Probable normal myocardial perfusion study. 2. Small fixed mid anteroseptal perfusion defect that improves although does not completely resolve on prone imaging, most likely reflecting a breast attenuation artifact although previous nontransmural infarction cannot be entirely excluded, yet is unlikely given the absence of any regional wall motion abnormality in this area. There is no evidence for any significant myocardial ischemia. 3. Normal left ventricular systolic function without focal wall motion abnormality and moderately increased left ventricular volumes. 4. Moderate-severely reduced exercise capacity without angina or ECG evidence of ischemia and an accentuated early heart rate response and a mild hypertensive blood response to exercise. 5. Compared to the previous myocardial perfusion study of 01/26/2016, an identical perfusion pattern is seen compared to the previous study. Left ventricular volumes are slightly larger compared to the previous exam. Her exercise capacity is unchanged from the previous study. Thus, there has been little significant change since the previous study with the exception of mild interval increase in left ventricular volumes. Imelda Cosby - JUSTIN/yusef/mateo doc#: [id number]/job#: [id number] dd: 06/16/2021 17:01:00 dt: 06/16/2021 17:48:00 DICTATING MD/COPIES TO: Eris Oslen MD; SHAE Black COPIES MNE: CORNELIO; ; SHAE Black
== END ==
PROVIDERS: PCP Nurse Practitioner; Referring Provider Nurse Practitioner; Visit Provider Nurse Practitioner
DX: R06.02 Shortness of breath (principal); R06.00 Dyspnea, unspecified; E66.01 Morbid (severe) obesity due to excess calories; Z20.822 Contact with and (suspected) exposure to COVID-19
CPT/HCPCS: 78452; 87635; 93017; A9502

== ENCOUNTER → 2021-06-14 09:16 | Outpatient (CLI) | payer BC, SELFPAY ==
[2021-06-14 12:53] LABS: COVID19 -Nasal RAPID Negative (Negative)
== END ==
PROVIDERS: PCP Nurse Practitioner; Visit Provider Nurse Practitioner Family
DX: Z20.822 Contact with and (suspected) exposure to COVID-19 (principal)
CPT/HCPCS: 87635

== ENCOUNTER → 2021-06-21 13:38 | Outpatient (CLI) | payer BC, SELFPAY ==
[2021-06-21 15:13] LABS: Hemoglobin A1C% w Est Avg Glu 5.4 % (4.0-6.0)
== END ==
PROVIDERS: PCP Nurse Practitioner; Referring Provider Orthopaedic Surgery; Visit Provider Orthopaedic Surgery
DX: R73.9 Hyperglycemia, unspecified (principal)
CPT/HCPCS: 36415; 83036

== ENCOUNTER → 2021-06-26 10:13 | Outpatient (CLI) | payer BC, SELFPAY ==
[2021-06-26 13:23] LABS: COVID19 -Nasal RAPID Negative (Negative)
== END ==
PROVIDERS: PCP Nurse Practitioner; Referring Provider Physician Assistant; Visit Provider Physician Assistant
DX: Z01.812 Encounter for preprocedural laboratory examination (principal); Z20.822 Contact with and (suspected) exposure to COVID-19
CPT/HCPCS: 87635

== ENCOUNTER → 2021-06-26 10:17 | Outpatient (CLI) | payer BC, SELFPAY ==
[2021-06-26 11:38] LABS: Add Manual Diff / Slide Review NO; Basophils Absolute Auto 100 /uL (0-100); Eosinophils Absolute Auto 100 /uL (0-450); Eosinophils Percent Auto 1.1 % (2-4); Hemoglobin 12.3 g/dL (12.0-16.0); Lymphocytes Absolute Auto 2800 /uL (1100-4500); Lymphocytes Percent Auto 31.3 % (25-40); Mean Corpuscular HGB Conc 33.4 % (30-36); Mean Corpuscular Volume 95.9 fL (80-100); Monocytes Absolute Auto 600 /uL (0-900); Neutrophils Absolute Auto 5300 /uL (1500-7000); Neutrophils Percent Auto 59.6 % (50-75); Platelet Count 271 X10^3/uL (150-400); Red Blood Cell Count 3.85 X10^6/uL (4.0-5.2); Red Cell Distribution Width 13.3 % (11.6-14.8); White Blood Cell Count 8.9 X10^3/uL (4.5-11.0)
== END ==
PROVIDERS: PCP Nurse Practitioner; Referring Provider Internal Medicine; Visit Provider Internal Medicine
DX: Z01.812 Encounter for preprocedural laboratory examination (principal); J45.50 Severe persistent asthma, uncomplicated; Z20.822 Contact with and (suspected) exposure to COVID-19
CPT/HCPCS: 36415; 85025; 87635

== ENCOUNTER 2021-06-28 12:22 | Observation (INO) | payer BC, SELFPAY ==
[2021-06-20 09:49] VITALS: BMI 46.2
[2021-06-28] VITALS (16 sets, daily range): BP systolic 123–163; BP diastolic 70–116; PULSE 67–97; RESP 12–20; TEMP 36.2–36.8; O2SAT 94–99; BMI 46.2; BMI 49.4
--- NOTE | 2021-06-28 06:00 | DI.RAD.S_ITS ---
PROCEDURE: XR KNEE LT 1TO2V INDICATIONS: postop prosthesis placement TECHNIQUE: 2 view(s) of the knee acquired. COMPARISON: [facility], CR, XR KNEE LT 3V, 01/28/2021, 15:06. FINDINGS: Bones: Patient is status post knee joint arthroplasty. Hardware components are in expected positions. Visualized bony structures are intact. Soft tissues: Overlying postoperative changes are noted. IMPRESSION: Expected immediate postoperative appearance, status post total left knee arthroplasty. Dictated by: Macario Selby M.D. on 06/29/2021 at 0:35 Approved by: Macario Selby M.D. on 06/29/2021 at 0:35
[2021-06-28] MEDS: ACETAMINOPHEN 325 MG TABLET 975 MG PO (12:47)
[2021-06-28] MEDS: PREGABALIN 75 MG CAPSULE PO (12:47)
[2021-06-28] MEDS: CELECOXIB 200 MG CAPSULE PO (12:47)
[2021-06-28] MEDS: LACTATED RINGERS 1,000 ML 42 ML IV ×2 (12:56→16:50)
[2021-06-28] MEDS: VANCOMYCIN 1,000 MG/200 ML PIGGYBACK 200 MG IV (14:16)
--- NOTE | 2021-06-28 15:03 | PM.PREOP ---
Pre-operative Note COVID-19 COVID-19 status: Negative Interval Note History & Physical reviewed/Exam performed by Physician: Yes Changes to H&P: No
--- NOTE | 2021-06-28 15:04 | P.OP_ITS ---
Operative Date/Time/Diagnoses Date of procedure: 06/28/21 Time of procedure: 15:20 Pre-op diagnosis: Severe left knee osteoarthritis Post-op diagnosis: same Procedure & Clinicians Procedure: Left total knee arthroplasty Same procedure as scheduled: Yes Indications: The patient has had progressively worsening left knee pain with radiographic changes consistent with arthritis. Non-operative management has failed and the patient has requested total knee replacement. The risks, benefits and alternatives to surgery were discussed with the patient prior to proceeding. Risks discussed included, but were not limited to, failure to relieve pain, stiffness, infection, nerve damage, deep venous thrombosis, pulmonary embolism, stroke, coma, heart attack, permanent paralysis and , as well as the potential need for eventual revision of the prosthetic. Surgeon: Kimberlee James Char Puller: Ann Wharton Anesthesia Type: Spinal Operative Notes Findings: Severe left knee osteoarthritis, good stability and adequate bone Closure Type: primary Specimen(s): none sent Prosthetic devices, grafts, tissues, transplants, or devices: James and Nephew Journey BCS 2 size 5 femur, size 4 tibia, +9 poly, 35 mm patella Applied: drain(s) Estimated Blood Loss (mL): 250 Blood products transfused: none Tourniquet time (min): 110 Procedure in detail: The patient was seen in the pre-operative area, where the patient identified the left knee as the operative site and this was marked with my initials. The patient received pre-operative antibiotics, and was taken to the operating room and placed on the operative table in the supine position. After satisfactory anesthesia, a multimedia educational specialist out was performed. The left leg was encircled with a tourniquet about the proximal thigh, and the leg was prepared from the toes to the tourniquet with ChloroPrep in the usual fashion and draped through sterile drapes. The leg was elevated and exsanguinated with Eschmark bandage and the tourniquet inflated to [250] mmHg pressure. The knee was approached through an approximately 18 cm incision centered over the patella and carried into the knee through a medial parapatellar arthrotomy. A portion of the medial and lateral meniscus was resected. Soft tissue was carefully mobilized around the patella the patella was measured with a caliper. She had severe arthritic change in her knee. There was marked osteophyte formation around the patella and she had evidence of patella baja with significant tightening of the quad tendon. The patella was gently mobilized by dissecting more proximally and carefully freeing the patella. Multiple osteophytes were resected off of the patella and a temporizing cut was made with final patellar prep a taped shut preparation done after the distal femoral and tibial cut. There was severe osteophyte formation around the knee and the osteophytes were resected off of the distal femur to bring it assembler hydraulic backhoe to normal appearing bone. There was also a very large anterior tibial osteophyte and surprisingly tight lateral compartment. Bone was resected from the patella and the patellar height was reconstituted with up an appropriate sized patellar component. A cover was then placed on the patella. A small amount of additional medial and lateral meniscus was resected. The distal femur was cut at 5?. A [+2] cut was used. It looked like an appropriate distal femoral cut and the cut was made without difficulty. An extramedullary guide was used for the tibial cut. 10 mm was resected off the least affected side. The tibia was prepared. The rotation was assessed. The patient was placed in extension residual medial and lateral meniscus as well as any residual bone was carefully resected. [No] additional tibia was resected. Hemostasis was achieved especially posteriorly. Additional local was injected into the posterior capsule. A werewolf hemostatic device was used. The rods moderate venous bleeding. The extension gap was assessed and additional releases for gap balancing were performed as necessary. It was checked with the gap global transportation manager. The femoral component was trial was placed and the notch was finished. The rotation was assessed and the appropriate size femoral guide was placed on the distal femur and finishing cuts were made. There was no evidence of notching. The anterior, posterior and chamfer cuts were then made. The posterior osteophytes and soft tissues were then removed. The posterior capsule was injected with part of a mixture of 60 ml 0.25% Marcaine mixed with 20 ml Exparel for post operative pain control. The remainder of this mixture was injected into the capsule and subcutaneous tissues during cement curing. The tibial and femoral components were then placed and the knee placed through a ra nge of motion. Range of motion was [0-130], with good stability throughout the range. The trials were then removed, and the tibia was finished. The bone was prepared with pulsatile lavage, and dried with a sponge. Cement was applied and the final prosthetics placed. Excess cement was removed during and after cement curing. After confirming there was no extruded cement posteriorly, the final tibial insert was placed. The knee was copiously irrigated and the tourniquet deflated. Hemostasis was obtained with the [werewolf system]. A drain was placed and brought out superolaterally. The capsule was closed with interrupted nonabsorbable suture. The subcutaneous layer was closed with barbed sutures, and the skin with a running 3-0 V-Lock suture and skin joshua.. An chelo dressing was applied and the patient was taken to recovery having tolerated the procedure well. Complications: none Post-operative Condition: stable Disposition: Acute Care Plan for aftercare: Total knee postop plan. She does have significant preoperative pulmonary problems and probably should be admitted as an inpatient for monitoring. She was started on a preoperative steroid dosing in order to optimize her lungs.
[2021-06-28] MEDS: TRANEXAMIC ACID 1,000 MG VIAL 1000 MG INJ ×2 (16:05→18:14)
[2021-06-28] MEDS: CLINDAMYCIN 900 MG/50 ML PIGGYBACK 50 MG IV ×2 (16:17→21:32)
--- NOTE | 2021-06-28 16:23 | SUR.OPER ---
Supine on padded OR bed. Pillow under head, arms secured on padded armboards <90 degree abduction. Safety belt across torso. Non-operative leg secured with tape over blanket over lower leg. Gel pad under right heel. Operative leg secured in DeMayo positioner. Foam padded brace at thigh of operative leg.
[2021-06-28] MEDS: BUPIVACAINE 0.25% (PF) 60 ML, EPINEPHrine 0.3 MG INJ (16:31)
[2021-06-28] MEDS: BUPIVACAINE LIPOSOME 266 MG/20 ML VIAL INJ (16:31)
[2021-06-28] MEDS: OXYCODONE IR 5 MG TABLET PO ×2 (19:03→19:46)
[2021-06-28] MEDS: HYDROMORPHONE 2 MG INJ IV ×2 (19:11→19:30)
--- NOTE | 2021-06-28 19:16 | SUR.PREOP ---
Block start time [1916] . Monitoring initiated and maintained throughout procedure. Oxygen and medications given per anesthesiologist instructions. Patient remained stable throughout procedure, no adverse reactions noted. Block end time [1923].
[2021-06-28] MEDS: LORazepam 2 MG/ML INJ 0.25 MG IV (19:22)
--- NOTE | 2021-06-28 19:27 | SUR.PHASEI ---
report to haroon barone
--- NOTE | 2021-06-28 19:27 | PM.PROC.1 ---
Procedures Date/Time Date of procedure: 06/28/21 Time of procedure: 19:20 Nerve Block Time out performed: Yes Local anesthetic used: lidocaine 1% (w/ epi 5mL + 15mL 0.5% ropivacaine) Location of anesthetic used: adductor canal Amount of anesthesia used (mL): 20 Nerve blocks: femoral (adductor canal) Procedure successful: Yes Patient tolerated procedure: well Complications: none Additional comments: Adductor canal block for post operative pain management. R/B discussed. Site marked. Consent verified/signed. Standard ASA monitors. NC O2. Chloroprep. Sterile technique. Femoral A/V/N identified medial mid thigh with US. Lidocaine skin wheal. 100mm x 21g Pajunk needle advanced with in-plane US guidance. Negative aspiration prior to each injection (x4). LA injected medial and lateral to femoral artery. No pain, no paresthesia with injection. VSS. Tolerated well. Performed in PACU.
--- NOTE | 2021-06-28 19:40 | SUR.PHASEI ---
194- Pt dozing on and off. States pain no longer excruciating. States pain 7/10 s/p block and IV meds.
--- NOTE | 2021-06-28 19:59 | SUR.PHASEI ---
Pt transferred to room 213 by SHAWN Cordova and SHAWN Gonzales. Belongings with pt.
[2021-06-28] MEDS: LACTATED RINGERS 1,000 ML 100 ML IV (21:32)
[2021-06-28] MEDS: OXYCODONE IR 10 MG TABLET PO (21:35)
[2021-06-28] MEDS: DOCUSATE 100 MG CAPSULE PO (21:35)
[2021-06-28] MEDS: ACETAMINOPHEN 325 MG TABLET 650 MG PO (21:35)
[2021-06-28] MEDS: ASPIRIN EC 81 MG TABLET PO (21:35)
[2021-06-28] MEDS: IBUPROFEN 400 MG TABLET PO (21:35)
[2021-06-28] MEDS: MONTELUKAST 10 MG TABLET PO (21:36)
[2021-06-29] MEDS: ALBUTEROL/IPRATROPIUM 3 ML AMPUL INH ×2 (00:23→11:16)
[2021-06-29 00:36] VITALS: PULSE 85; RESP 16; O2SAT 95
[2021-06-29] MEDS: IBUPROFEN 400 MG TABLET PO ×4 (00:56→12:01)
[2021-06-29] MEDS: OXYCODONE IR 10 MG TABLET PO ×4 (00:56→12:01)
[2021-06-29 03:36] VITALS: BP 131/65; PULSE 78; RESP 19; TEMP 36.4; O2SAT 96
[2021-06-29] MEDS: CLINDAMYCIN 900 MG/50 ML PIGGYBACK 50 MG IV (04:13)
[2021-06-29 05:37] LABS: Hematocrit 32.4 % (36-46); Hemoglobin 10.7 g/dL (12.0-16.0)
[2021-06-29] MEDS: PANTOPRAZOLE DR 40 MG TABLET PO (06:23)
--- NOTE | 2021-06-29 08:06 | PM.DS.1 ---
History of Present Illness History of Present Illness Date Patient Seen: 06/29/21 Time Patient Seen: 08:06 Chief complaint: Left knee pain s/p left TKA Narrative: The patient is complaining of moderate left knee pain this morning. It she denies any fevers, chills, night sweats. No new numbness or tingling. Overall she is feeling well and would like to work with physical therapy and hopefully be discharged home today. Discharge Providers Provider Discharge Date: 06/29/21 Primary care physician: SHAE Black Consults: 06/20/21 11:05 Consult to Anesthesiology Routine Comment: Consulting Provider: Anesthesiologist Reason for consultation: PAC courtesy re: Pulmonary 06/28/21 06:00 Consult to Anesthesiology Routine Comment: Consulting Provider: Anesthesiologist Reason for consultation: Regional block for post operative pain control 06/28/21 20:04 Consult to Discharge Planning Routine Comment: Consult to Physical Therapy Evaluate & Treat Comment: Physician Instructions: postop TKA protocol Consult to Respiratory Therapy Evaluate & Treat Comment: Physician Instructions: Evaluate and treat Discharge provider: Ann Wharton PA-C Summary Hospital Course Discharge Diagnosis: Severe left knee osteoarthritis Hospital Course: Date of procedure: 06/28/21 Time of procedure: 15:20 Procedure & Clinicians Procedure: Left total knee arthroplasty Same procedure as scheduled: Yes Indications: The patient has had progressively worsening left knee pain with radiographic changes consistent with arthritis. Non-operative management has failed and the patient has requested total knee replacement. The risks, benefits and alternatives to surgery were discussed with the patient prior to proceeding. Risks discussed included, but were not limited to, failure to relieve pain, stiffness, infection, nerve damage, deep venous thrombosis, pulmonary embolism, stroke, coma, heart attack, permanent paralysis and , as well as the potential need for eventual revision of the prosthetic. Surgeon: Kimberlee James Fisher Eel: Ann Wharton Anesthesia Type: Spinal Operative Notes Findings: Severe left knee osteoarthritis, good stability and adequate bone Closure Type: primary Specimen(s): none sent Prosthetic devices, grafts, tissues, transplants, or devices: James and Nephew Journey BCS 2 size 5 femur, size 4 tibia, +9 poly, 35 mm patella Applied: drain(s) Estimated Blood Loss (mL): 250 Blood products transfused: none Tourniquet time (min): 110 Exam Vital Signs (past 8 hours): - 06/29/21 00:36 06/29/21 03:36 Temperature 97.6 F Pulse Rate 85 78 Respiratory Rate 16 19 Blood Pressure 131/65 Pulse Oximetry 95 96 Oxygen Delivery Method Room Air Oxygen Flow Rate 2 Narrative Exam Narrative: Pleasant 50-year-old female, resting comfortably in bed, no acute distress. Dressing has a pinpoint area of drainage. Otherwise it is clean, dry, intact. Bilateral lower extremity motor functions are grossly intact. Sensation is grossly intact to light touch in bilateral lower extremities. Calves are soft, nontender palpation. Objective Labs Result Diagrams: 06/29/21 05:17 Labs: Laboratory Results - last 24 hr 06/29/21 05:17 Hgb 10.7 L Hct 32.4 L PFSH Medical History Ankle pain (2014) Arthritis Asthma Chronic low back pain Chronic pain syndrome Degenerative joint disease of knee Edema Environmental allergies Foot pain Hordeolum externum (st) Hypertension (1999) Hypothyroidism (2013) Kidney stones (~2006) Lumbosacral spondylosis Osteoarthritis (2000) Precancerous skin lesion Prolapsed bladder Tinea pedis Urinary incontinence (2012) Vitamin D deficiency Surgical History Anesthesia History of hernia surgery Status post breast biopsy Status post hysterectomy (1999) Status post insertion of intrathecal pump (~2012) Family History Father Diabetes mellitus Heart disease Hypertension Grandfather Heart disease Cancer Heart attack Grandmother Diabetes mellitus Breast cancer Mother Diabetes mellitus Heart disease Hypertension High cholesterol Social History household members: significant other and children Smoking Status: Never smoker second hand exposure: No alcohol intake: current substance use type: does not use Discharge Assessment & Plan Assessment and Plan Assessment: Stable status post left total knee arthroplasty Plan of Treatment: -mobilize with PT. Weightbearing as tolerated front wheel walker -continue with current pain regimen and DVT prophylaxis -DC Hemovac drain after morning session of physical therapy -DC home today once cleared by PT Discharge Plan Discharge Plan Patient Disposition: Home Discharge orders & Medications Discharge Orders: Discharge (Order); Ordered 06/29/21 Ordered By: Ann Wharton Prescriptions: New acetaminophen 500 mg capsule 500 mg PO Q4H PRN (Reason: fever or pain) Qty: 90 RF: 0 aspirin 81 mg Tablet,Delayed Release (Dr/Ec) 81 mg PO BID 42 Days Qty: 84 RF: 0 docusate sodium 100 mg Capsule 100 mg PO BID PRN (Reason: Constipation from narcotic pain meds) Qty: 20 RF: 0 ibuprofen 400 mg Tablet 400 mg PO Q4HR MDD Max 2400 mg per day Qty: 90 RF: 0 oxycodone 10 mg Tablet 10 mg PO Q3HR PRN (Reason: Pain, Severe (7-10)) Qty: 42 RF: 0 Continued citalopram 20 mg tablet 20 mg PO DAILY Qty: 90 RF: 1 fluticasone propion-salmeterol 500-50 mcg/dose blister with device 1 inh inhalation Q12H Qty: 60 RF: 11 montelukast 10 mg tablet See Rx Instructions .ROUTE .COMPLEX Qty: 90 RF: 3 albuterol sulfate 2.5 mg /3 mL (0.083 %) solution for nebulization 2.5 mg INHALATION QID PRN (Reason: SOB, wheezes, cough) Qty: 75 RF: 2 losartan 50 mg tablet 75 mg PO DAILY Qty: 135 RF: 2 spironolactone 100 mg tablet 100 mg PO DAILY Qty: 90 RF: 3 omeprazole 40 mg Capsule,Delayed Release(Dr/Ec) 40 mg PO DAILY RF: 0 Combivent Respimat 20-100 mcg/actuation mist 1 puff INHALATION QID PRN (Reason: Shortness Of Breath) RF: 0 spironolactone 100 mg tablet 100 mg PO DAILY RF: 0 Discontinued oxycodone-acetaminophen 5-325 mg tablet 1 tab PO TID PRN (Reason: pain) Qty: 90 RF: 0 Follow up/Referrals: Mary Zelaya ARNP [Primary Care Provider] - Kimberlee James MD [Physician] - (10-14 days for postoperative visit) Diet/Activity/Treatments Diet: Diet as Tolerated and Regular Other treatments: Medications: -Aspirin 81mg twice daily x6 weeks to prevent blood clots. -OTC Tylenol 500 mg 1 tablet every 4 hours as needed for pain/fever. Max 6 tablets per day. -Ibuprofen 400 mg 1 tablet every 4 hours as needed for pain/inflammation. Max 2,400 mg per day. -Oxycodone 10 mg take 1 tablet every 4 hours as needed for moderate-severe pain (narcotic pain medication). -As needed medications: -Ducolax and /or MiraLax as needed for constipation from narcotic pain medications. -Pepcid AC as needed for stomach upset (usually from aspirin or ibuprofen). Dressing/Wound care: -Remove the Prakash wrap 48 hours after surgery. -Keep Cam dressing in place until postoperative follow-up office visit. -Okay to shower. Keep wound out of direct water stream. No soaking or submerging until all the scabs fall off (approximately 6 weeks). -Please call the office if dressing becomes wet, soiled, or saturated. Activities: -Weight-bearing as tolerated. Use front wheeled walker, and progress to cane when safe. -Continue with home exercises as directed by your physical therapist. -Elevate ?toes above the nose if you have significant swelling in your lower leg. (A wedge pillow is easiest.) -Ice your incision as needed for pain/inflammation/swelling. Protect your skin with a folded pillowcase. Follow-up: -Follow-up with your surgeon or PA in the office in 10-14 days after surgery. -Follow-up with your surgeon 6 weeks postoperatively. Call the office if you have chest pain, shortness of breath, significant swelling that will not resolve with elevating, fever over 101?, significantly worsening pain. [facility]: [phone] Skin/Wound/Dressing Care Report to your healthcare provider any signs of infection, such as:: chills, fever, night sweats, unusual drainage and unusual redness Visit Report/Discharge Packet Instructions: DI for Knee Replacement Stand Alone Forms: Surgery Discharge Discharge Data Primary Care Provider: Mary Zelaya Attending Provider: Kimberlee James VTE Deep Vein Thrombosis/Pulmonary Embolism Present on Admission: No
[2021-06-29 08:30] VITALS: BP 121/62; PULSE 77; RESP 16; TEMP 36.5; O2SAT 95
[2021-06-29] MEDS: ACETAMINOPHEN 325 MG TABLET 650 MG PO (08:57)
[2021-06-29] MEDS: ASPIRIN EC 81 MG TABLET PO (08:57)
[2021-06-29] MEDS: CITALOPRAM 10 MG TABLET 20 MG PO (08:58)
[2021-06-29] MEDS: SPIRONOLACTONE 25 MG TABLET 100 MG PO (08:58)
[2021-06-29] MEDS: predniSONE 20 MG TABLET 40 MG PO (08:58)
[2021-06-29] MEDS: DOCUSATE 100 MG CAPSULE PO (08:58)
[2021-06-29 09:04] VITALS: BP 121/63; PULSE 79
--- NOTE | 2021-06-29 10:10 | PT.IIE ---
Current Diagnoses Unilateral primary osteoarthritis, left knee (06/28/21) Surgery Performed Operation Date: 06/28/21 14:15 Actual Procedures p Total Knee Arthroplasty(Left) - Kimberlee James MD Surgical History (Last Reviewed 06/29/21 @ 08:08 by Ann Wharton PA-C) Anesthesia Status post breast biopsy Status post hysterectomy (1999) Medical History (Last Reviewed 06/29/21 @ 08:08 by Ann Wharton PA-C) Ankle pain (2014) Arthritis Asthma Chronic low back pain Chronic pain syndrome Degenerative joint disease of knee Edema Environmental allergies Foot pain Hordeolum externum (st) Hypertension (1999) Hypothyroidism (2013) Kidney stones (~2006) Lumbosacral spondylosis Osteoarthritis (2000) Precancerous skin lesion Prolapsed bladder Tinea pedis Urinary incontinence (2012) Vitamin D deficiency Physical Therapy Inpatient Evaluation/Re-Eval M1 PT/OT-IP Prior Functional Status Start: 06/29/21 14:12 Freq: NEEDED Status: Active Protocol: Document 06/29/21 10:10 AB (Rec: 06/29/21 14:22 AB [id number]) Medical Review Prior Functional Status Medical History Reviewed Yes Communication able to make needs known Mobility and Gait pt stated that she is independent with all mobilities and ambulation without AD Social History Household Members significant other,children Living Arrangements House Number of Floors (Floors) Two Floors Number of Stairs To Enter/Railing? 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 PT-IP Current Condition Start: 06/29/21 14:12 Freq: NEEDED Status: Active Protocol: Document 06/29/21 10:10 AB (Rec: 06/29/21 14:22 AB [id number]) Physical Therapy Current Condition Current Condition Evaluation Date 06/29/21 Treatment Diagnosis s/p L TKA; difficulty in walking Onset Date 06/28/21 M3 PT-IP Subjective Start: 06/29/21 14:12 Freq: NEEDED Status: Active Protocol: Document 06/29/21 10:10 AB (Rec: 06/29/21 14:22 [id number]) Subjective Physical Therapy Visit Type Type Initial Evaluation Visit Start Time 10:10 Visit Stop Time 11:15 Total Visit Minutes 65 Number of GARNETT MACHINE OPERATOR HELPER Visits 0 Physical Therapy Visit Comments Patient Comments pt is agreeable to do PT Therapy Pain Assessment Pain When Pain Assessed At Rest Pain Present Pain Present Pain Reported Location Left Knee Intensity 4 Scale Used Numeric (0 - 10) Pain Management Techniques Modification of Treatment,Re- positioning,Timing of Activity with Medications M4 PT-IP Mobility and Gait Start: 06/29/21 14:12 Freq: NEEDED Status: Active Protocol: Document 06/29/21 10:10 AB (Rec: 06/29/21 14:22 [id number]) PT-Bed Mobility Assessment Supine to Sit Supine to Sit Standby Assistance PT-Transfer Assessment Sit to and From Stand Sit to and from Stand Contact Guard Assistance, Minimal Assistance,1 Person Assistance,Use of Upper Extremities Equipment Transfer Assistive Device Gait Belt,Front Wheeled Walker Orthotic/Prosthetic Devices or Brace: No Transfers Transfer Destination Chair Transfer Technique ambulated Transfer Ability Level of Assist Contact Guard Assistance, Minimal Assistance,1 Person Assistance,Use of Upper Extremities Comments Mobility Comments pt completed supine to sit SBA . completed sit to stand CGA to min A and cues. ambulated to the chair ~ 12 ft using FWW min A and cues. cued for L quads activation. pt ambulated out in the hallway using FWW CGA to min A. educated spouse on how to assist pt and assisted pt with ambulation. completed up/down steps with pt holding on to R rail with B hands. educated spouse on how to assist pt. Pt completed steps with min A and spouse was able to assist pt safely. pt assisted back to her room. educated on how to use 4WW. pt completed sit to stand from w/c CGA and ambulated with 4WW CGA to min A to the chair. positioned pt on the chair. educated spouse for donning/ doffing safety belt and completed. Pt and spouse without any concerns. Left pt with RT in room. informed nurse regarding pt's mobility. Gait Assessment Gait Gait Assistance Required: Contact Guard Assist,Minimum Assistance Distance (Feet) 50 Able to Maintain Weight Bearing Status Yes During Gait Assistive Devices Assistive Device Gait Belt,Front Wheeled Walker ,4 Wheeled Walker Orthotic/Prosthetic Devices or Brace: No Gait Deviations General Gait Pattern Antalgic,Decreased Stride Length,Decreased Feet Clearance,Step-to Gait Factors Limiting Gait Function Factors Limiting Gait Function Decreased Activity Tolerance, Decreased Strength,Limited Range of Motion,Pain,Poor Balance,Poor Safety Awareness Stair Climbing Assessment Evaluation Level of Assist On Stairs Minimal Assistance Devices Stair Climbing Assistive Devices Right Railing Technique/Endurance Stair Climbing Direction Ascend and Descend Stair Climbing Technique Step to Step Number of Steps Climbed 3 Query Text: Stair Climbing Set # Repetitions (reps) 1 PT-Balance Assessment Sitting Balance and Reactions Static Sitting Balance Ability Good Dynamic Sitting Balance Ability Good Standing Balance and Reactions Static Standing Balance Ability Fair Dynamic Standing Balance Ability Fair Device Used FWW M5 PT-IP Objective Assessments Start: 06/29/21 14:12 Freq: NEEDED Status: Active Protocol: Document 06/29/21 10:10 AB (Rec: 06/29/21 14:22 [email or web address]) Orientation Orientation/Cognition Level of Alertness Alert Orientation Name,Age,Birthday,Month,Date, Year,Day of Week,Place, Situation Language Function Ability No Deficits Noted Safety Awareness Understands Safety Issues Memory Description No Deficits Noted Gross Range of Motion Lower Extremity ROM Impairments L knee flexion: ~ 60 deg L knee extension: ~ 20 deg less to 0 Strength Lower Extremity Strength Assessment Left Impaired Hip 4/5 Knee 4-/5 Coordination Assessment Gross Coordination Gross Coordination WNL Sensation Assessment Sensation Gross Sensation WNL Muscle Tone Muscle Tone WNL Yes M6 PT-IP Treatment Start: 06/29/21 14:12 Freq: NEEDED Status: Active Protocol: Document 06/29/21 10:10 AB (Rec: 06/29/21 14:22 [email or web address]) Physical Therapy Treatment Exercises Exercises Heel Slides Education Education Provided Precautions,Weight Bearing Status,Post-Op Packet,Safety M7 PT-IP Assessment and Plan Start: 06/29/21 14:12 Freq: NEEDED Status: Active Protocol: Document 06/29/21 10:10 AB (Rec: 06/29/21 14:22 [email or web address]) PT Summary Assessment and Plan Potential Rehabilitation Potential Good Status of Condition at Evaluation Stable Summary Impairments Pain,ROM,Strength,Balance, Coordination,Sensation,Tone, Cognition,Bed Mobility, Transfers,Gait,Activity Tolerance Assessment Summary caregiver training conducted and spouse was able to assist pt safely. pt has outpt PT scheduled. Pt may go home when medically stable. Goals Bed Mobility Goal Independent Transfer Goal Independent,Front Wheeled Walker,Four Wheeled Walker Gait Goal Independent,Front Wheel Walker ,Four Wheel Walker Gait Distance 200 Other Goals up/down 12 steps R rail SBA Days to Meet Goals 5 Frequency of Treatment Frequency Of Treatment Twice a Day Treatment Plan Physical Therapy Treatment Plan Bed Mobility Training,Transfer Training,Gait Training, Therapeutic Exercise,Balance Retraining,Post Op Education, Discharge Planning,Hot or Cold Pack,Neuromuscular Re-ed, Coordination Retraining,Manual Therapy Weight Bearing Status Weight Bearing Status Weight Bear as Tolerated Allowed Weight Bearing Amount (enter % LLE WBAT or #) (%) Recommendations To Nursing Amount of Assist Needed 1 Person Assist Discharge Recommendations PT Discharge Recommendations Home with Assistance, Outpatient PT Transportation Needs at Discharge Private Vehicle
--- NOTE | 2021-06-29 10:28 | CM.DANOTE ---
DCP: Case received, EMR reviewed and met with patient. Significant other, Prosper Logan, was also in the room. Introduced self and role. Was able to obtain information regarding patient's baseline status prior to surgery, as well as her current living situation. DCP assessment completed with information currently available. Patient is a 50 year old female who admitted yesterday morning to the care of the orthopedic team. PCP: SHAE Black. Payer: confirmed: [facility] Out of [facility]. Patient came to the hospital via private vehicle secondary to having a surgical procedure. Patient had left total knee arthroplasty. She has history of left knee osteoarthritis. Met with patient and partner in her room. She is pleasant, alert and oriented. At her baseline, she is independent and works from home for [employer]. Patient indicated that she does not use any DME at her baseline and has been able to drive. She indicated that her partner, Prosper, will be able to assist her. P: Patient is to discharge home today. She will be working with P.T. again before discharge. Melissa Davis RN/Drain Tile Press Operator Discharge Planning/Care Management CM Discharge Assessment Start: 06/29/21 10:23 Freq: Status: Active Protocol: Document 06/29/21 10:23 (Rec: 06/29/21 10:25 [id number]) Discharge Planning Assessment Assigned Business Office Technology Instructor Melissa Davis RN/Drain Tile Press Operator Advance Directives? No History Provided By Patient,Medical Record Prior Living Arrangements House Household Members significant other,children Type of transporation used prior to Drives own vehicle admit Independent with ADL's Yes Is patient alert and oriented? Yes Barriers to Discharge No Discharge Plan Home Transportation Arrangement Significant other Referrals Initiated None needed Whiteboard Updated in Patient Room with Yes name and ext. # of Business Office Technology Instructor Review Status In Process Next Review Type Continued Stay Review Pre-Anesthesia Assessment Start: 06/20/21 09:49 Freq: Status: Active Protocol: Document 06/20/21 09:49 CAB (Rec: 06/20/21 10:21 CAB [id number]) Pre-Anesthesia Assessment Patient Information Reviewed Via Phone Assessment Assessment Completed With Patient Diagnostic Results BMP/CMP,CBC,EKG Comment Labs/EKG @ 04/21/21, COVID screen-needs to schedule Primary Care Provider Mary Zelaya Seen Specialist in Last 12 Months Yes Specialist Seen ENT,Orthopedist,Research Coordinator Comment Pain med contract with Dr. Jackson. Pulmonary visit 05/09/21 scanned Primary Language Singaporean Sheep Farm Manager Required No Height 5 ft 7 in Weight 295 lb Body Mass Index (BMI) 46.2 Hearing Ability Normal Visual Impairment Severely Limited Visual Assist Glasses Dentition Type Teeth, Natural Present,Partial - Upper Barriers to Learning Visual Other Aids No Hx Anesthesia Reactions No Hx Family Anesthesia Reaction No Hx Malignant Hyperthermia No Hx Blood Transfusions No Anesthesia Review Requested Yes: PAC courtesy re: Pulmonary Kineseologist No alcohol intake current alcohol intake frequency holidays/special occasions only Smoking Status Never smoker Substance Use Type does not use Pain Present Pain Reported Musculoskeletal Symptoms Abnormal Gait,Back Pain, Difficulty Walking,Joint Pain History of Falling (Recent or History of No ) Patient is completely paralyzed or No completely immobile Mental Status Oriented to own ability Is patient on oxygen? No Does patient have TEJADA/SOB Yes: Exertional dyspnea Hx Sleep Apnea No Currently Taking a Beta Renea Yes: Metoprolol Can You Climb a Flight of Stairs Without Yes SOB Hx Chest Pain No Hx SOB Yes: Exertional dyspnea Hx Syncope or Dizziness No Anti-Coagulant Therapy No Has a Assistant Center Director No Cardiac Testing Yes: Nuc perfusion @ [facility] - no significant change from Hx Pacemaker/ICD No Pacemaker Rep Required? No Cardiac Clearance Received Not Applicable Diet Type At Home Regular dysphagia No Bladder Pattern Frequency,Incontinent,Nocturia ,Urgency Urinary Catheter Present No Hx Urinary Self Catheterization No Diabetes No Patient No Lactating No Hx Drug Resistant Organism No Presence of External or Internal Medical Yes: Pain pump implanted left Devices abdomen Have you had any close contact with No someone diagnosed with COVID-19? Received a COVID vaccine? Yes Received all doses? Yes Marital Status Lives With significant other,children Prior Living Arrangements House Number of Floors (Floors) Two Floors Support System Child/Children,Significant Other Does the Patient Have Assistance After Yes Surgery Patient Discharge Plan Description Return Home Comment Pt advised possible same day surgery per surgeon Feels Safe in Current Environment Yes Been Physically Hurt or Threatened By a No Person in Current Environment Do you have thoughts of harming yourself None or others? Are you currently considering suicide? No Do you have a plan to hurt yourself or No Plan others? Do You Have Any Spiritual Beliefs That No May Affect Your HC Choices? Do You Have Any Cultural Practices That No May Affect Your HC Choices? Who Can We Speak to About Patient's Care Family, friends Identifying Code for Release of Patient Declines to issue Information Health Care Proxy/Next of Kin [place]per [place] Health Care Proxy Emergency Contact Name Prosper Haines) Barry (son) Emergency Contact Phone Number Prosper: [phone] Barry: [phone] Advance Directives? No Power of Deputy Chief Executive No PAC Instructions Diabetes instructions,Do not shave/clip surgical site, Durable medical equipment, Medications to take/avoid, Nasal antibiotic,No ETOH/ petroleum product on skin DOS, NPO,Post-op transportation, Sensory aids,Sturdy shoes/ comfortable clothes,Do not bring valuables and remove jewelry Discharge Planning/Care Management CM Discharge Assessment Start: 06/29/21 10:23 Freq: Status: Active Protocol: Document 06/29/21 10:23 (Rec: 06/29/21 10:25 [id number]) Discharge Planning Assessment Assigned Business Office Technology Instructor Melissa Davis RN/Drain Tile Press Operator Advance Directives? No History Provided By Patient,Medical Record Prior Living Arrangements House Household Members significant other,children Type of transporation used prior to Drives own vehicle admit Independent with ADL's Yes Is patient alert and oriented? Yes Barriers to Discharge No Discharge Plan Home Transportation Arrangement Significant other Referrals Initiated None needed Whiteboard Updated in Patient Room with Yes name and ext. # of Business Office Technology Instructor Review Status In Process Next Review Type Continued Stay Review Pre-Anesthesia Assessment Start: 06/20/21 09:49 Freq: Status: Active Protocol: Document 06/20/21 09:49 CAB (Rec: 06/20/21 10:21 CAB [id number]) Pre-Anesthesia Assessment Patient Information Reviewed Via Phone Assessment Assessment Completed With Patient Diagnostic Results BMP/CMP,CBC,EKG Comment Labs/EKG @ [facility] 04/21/21, COVID screen-needs to schedule Primary Care Provider Mary Zelaya Seen Specialist in Last 12 Months Yes Specialist Seen ENT,Orthopedist,Research Coordinator Comment Pain med contract with Dr. Jackson. Pulmonary visit 05/09/21 scanned Primary Language Singaporean Sheep Farm Manager Required No Height 5 ft 7 in Weight 295 lb Body Mass Index (BMI) 46.2 Hearing Ability Normal Visual Impairment Severely Limited Visual Assist Glasses Dentition Type Teeth, Natural Present,Partial - Upper Barriers to Learning Visual Other Aids No Hx Anesthesia Reactions No Hx Family Anesthesia Reaction No Hx Malignant Hyperthermia No Hx Blood Transfusions No Anesthesia Review Requested Yes: PAC courtesy re: Pulmonary Kineseologist No alcohol intake current alcohol intake frequency holidays/special occasions only Smoking Status Never smoker Substance Use Type does not use Pain Present Pain Reported Musculoskeletal Symptoms Abnormal Gait,Back Pain, Difficulty Walking,Joint Pain History of Falling (Recent or History of No ) Patient is completely paralyzed or No completely immobile Mental Status Oriented to own ability Is patient on oxygen? No Does patient have TEJADA/SOB Yes: Exertional dyspnea Hx Sleep Apnea No Currently Taking a Beta Renea Yes: Metoprolol Can You Climb a Flight of Stairs Without Yes SOB Hx Chest Pain No Hx SOB Yes: Exertional dyspnea Hx Syncope or Dizziness No Anti-Coagulant Therapy No Has a Assistant Center Director No Cardiac Testing Yes: Nuc perfusion @ [facility] - no significant change from Hx Pacemaker/ICD No Pacemaker Rep Required? No Cardiac Clearance Received Not Applicable Diet Type At Home Regular dysphagia No Bladder Pattern Frequency,Incontinent,Nocturia ,Urgency Urinary Catheter Present No Hx Urinary Self Catheterization No Diabetes No Patient No Lactating No Hx Drug Resistant Organism No Presence of External or Internal Medical Yes: Pain pump implanted left Devices abdomen Have you had any close contact with No someone diagnosed with COVID-19? Received a COVID vaccine? Yes Received all doses? Yes Marital Status Lives With significant other,children Prior Living Arrangements House Number of Floors (Floors) Two Floors Support System Child/Children,Significant Other Does the Patient Have Assistance After Yes Surgery Patient Discharge Plan Description Return Home Comment Pt advised possible same day surgery per surgeon Feels Safe in Current Environment Yes Been Physically Hurt or Threatened By a No Person in Current Environment Do you have thoughts of harming yourself None or others? Are you currently considering suicide? No Do you have a plan to hurt yourself or No Plan others? Do You Have Any Spiritual Beliefs That No May Affect Your HC Choices? Do You Have Any Cultural Practices That No May Affect Your HC Choices? Who Can We Speak to About Patient's Care Family, friends Identifying Code for Release of Patient Declines to issue Information Health Care Proxy/Next of Kin Prosper Ware) Health Care Proxy Emergency Contact Name Prosper Haines) Barry (son) Emergency Contact Phone Number Prosper: [phone] Barry: [phone] Advance Directives? No Power of Deputy Chief Executive No PAC Instructions Diabetes instructions,Do not shave/clip surgical site, Durable medical equipment, Medications to take/avoid, Nasal antibiotic,No ETOH/ petroleum product on skin DOS, NPO,Post-op transportation, Sensory aids,Sturdy shoes/ comfortable clothes,Do not bring valuables and remove jewelry
[2021-06-29] MEDS: BUDESONIDE 0.5 MG/2 ML NEB INH (11:16)
[2021-06-29 11:20] VITALS: PULSE 81; RESP 16; O2SAT 100
--- NOTE | 2021-06-29 12:05 | PC.NURSE ---
Discharge note: Patient discharged home per MD order and PT clearance. Discharge instructions given to both patient and spouse discussed importance of F/U with Ortho in two weeks, dressing care, mobility precautions, and new medications. Both patient and spouse verbalized understanding of discharge instructions. Home via private vehicle accompanied by spouse.
== END 2021-06-29 11:50 | disposition home or self-care (01) ==
LOC: OR 12:22 → AC 12:24
PROVIDERS: Admitting Provider Orthopaedic Surgery; PCP Nurse Practitioner; Referring Provider Orthopaedic Surgery; Visit Provider Orthopaedic Surgery
PROC: 0SRD0JZ Replacement of Left Knee Joint with Synthetic Substitute, Open Approach (ICD-10-PCS; CPT 27447; principal; 2021-06-28 14:15)
DX: M17.12 Unilateral primary osteoarthritis, left knee (principal); I10 Essential (primary) hypertension; E66.9 Obesity, unspecified; M54.50 Low back pain, unspecified; G89.29 Other chronic pain
CPT/HCPCS: 27447; 36415; 64450; 73560; 85014; 85018; 94640; 94760; 97161; 97530; C1776; G0378; C9290; J0171; J0330; J1100; J1170; J2060; J2250; J2274; J2405; J2704; J3010

== ENCOUNTER → 2021-12-12 18:23 | Outpatient (CLI) | payer BC, SELFPAY ==
[2021-06-28 22:10] VITALS: BMI 49.4
--- NOTE | 2021-12-12 18:25 | DI.RAD.S_ITS ---
PROCEDURE: XR CHEST 2V INDICATIONS: cough TECHNIQUE: 2 views of the chest were acquired. COMPARISON: [facility], CR, XR CHEST 1V, 04/21/2021, 14:51. FINDINGS: Surgical changes and devices: None. Lungs and pleura: Lungs are clear. No pleural effusions or pneumothorax. Mediastinum: Mediastinal contours are normal. Heart size is normal. Bones and chest wall: No suspicious bony abnormalities. Soft tissues appear unremarkable. IMPRESSION: No acute pulmonary process. Dictated by: Maricruz Sandy M.D. on 12/12/2021 at 19:12 Approved by: Maricruz Sandy M.D. on 12/12/2021 at 19:13
== END ==
LOC: RAD 18:24
PROVIDERS: PCP Nurse Practitioner; Referring Provider Nurse Practitioner; Visit Provider Nurse Practitioner
DX: R05.9 Cough, unspecified (principal)
CPT/HCPCS: 71046

== ENCOUNTER 2022-02-14 14:02 | Emergency (ER) | payer BC, SELFPAY ==
[2021-06-28 22:10] VITALS: BMI 49.4
[2022-02-14 14:08] VITALS: BP 195/100; PULSE 69; RESP 18; TEMP 36; O2SAT 97; BMI 45.4
--- NOTE | 2022-02-14 14:12 | DI.RAD.S_ITS ---
PROCEDURE: XR SHOULDER RT MIN 2V INDICATIONS: pain TECHNIQUE: 3 views of the shoulder were acquired. COMPARISON: None. FINDINGS: Bones: No fractures or dislocations. Mild to moderate acromioclavicular joint osteoarthritic changes are seen. No suspicious bony lesions. Visualized ribs appear intact. Soft tissues: No suspicious soft tissue calcifications. IMPRESSION: No acute shoulder fracture or dislocation. 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 Dictated by: Valdo Islas M.D. on 02/14/2022 at 15:45 Approved by: Valdo Islas M.D. on 02/14/2022 at 15:45
--- NOTE | 2022-02-14 15:03 | DI.RAD.S_ITS ---
PROCEDURE: XR CERVICAL SPINE 2V OR 3V INDICATIONS: rt arm radiculopathy, atraumatic, hx arthritis TECHNIQUE: 4 view(s) of the cervical spine were acquired. COMPARISON: None. FINDINGS: Bones: No fractures or dislocations to the C7-T1 level. Mild degenerative disc disease in mid to lower cervical spine is seen. The lateral masses of C1 appear intact on the odontoid view. No suspicious bony lesions. Soft tissues: No prevertebral soft tissue swelling. IMPRESSION: Mild degenerative disc disease in mid to lower cervical spine. No acute fracture or dislocation. Dictated by: Valdo Islas M.D. on 02/14/2022 at 15:48 Approved by: Valdo Islas M.D. on 02/14/2022 at 15:48
--- NOTE | 2022-02-14 15:03 | ED.UPPEXIN ---
HPI - Extremity Injury (Upper) <Ann Marie Guillen, [facility] - Last Filed: 02/14/22 18:32> General Chief Complaint: Extremity Injury, Upper Stated Complaint: Shooting right arm pain towards shoulders Time Seen by Provider: 02/14/22 14:31 Source: patient Mode of arrival: Ambulatory History of Present Illness HPI narrative: This is a 51-year-old female with history of obesity, arthritis, hypertension, GERD, lumbosacral spondylosis, anxiety and depression, hyperlipidemia who presents to the emergency department complaining of acute onset of right arm/shoulder pain along with numbness and tingling down her arm since she woke up this morning. She denies any recent trauma, denies any history of this in the past, denies any pain or numbness and tingling anywhere else, denies any weakness. States that she has constant pain in her right shoulder which is near the attachment of her scapula with numbness and tingling down her arm. She denies any history of neck pain, states that she has chronic low back pain and use to have a morphine pain pump for this, has been seen in the emergency department for opioid withdrawal, states that she is on oxycodone at home for this and she took it last at 1100 hours without any improvement in her pain today. She denies taking any Tylenol, denies any chest pain, back pain, new weakness or cold sensation of her fingers. She states that she can still use her hand and arm like normal but she has constant pain in her shoulder. She states that she slept on her right side with a pillow wedged underneath her head. She has tenderness to palpation of her right trapezius but no tenderness to palpation of her cervical spine. Related Data Previous Rx's Medication Instructions Recorded citalopram 20 mg tablet 20 mg PO DAILY #90 tabs 08/31/21 ipratropium 20 mcg-albuterol 100 1 puff inhalation QID PRN 08/31/21 mcg/actuation mist for inhalation Shortness Of Breath #12 grams (Combivent Respimat) losartan 50 mg tablet 75 mg PO DAILY #135 tabs 08/31/21 montelukast 10 mg tablet See Rx Instructions .Route 08/31/21 .COMPLEX #90 tabs omeprazole 40 mg capsule,delayed 40 mg PO DAILY #90 caps 08/31/21 release spironolactone 100 mg tablet 100 mg PO DAILY #90 tabs 08/31/21 albuterol sulfate 2.5 mg/3 mL 2.5 mg (3 mL) inhalation QID PRN 12/13/21 (0.083 %) solution for nebulization SOB, wheezes, cough #90 mL fluticasone 500 mcg-salmeterol 50 2 inh inhalation Q12H #360 ea 12/13/21 mcg/dose blistr powdr for inhalation triamcinolone acetonide 40 mg/mL 20 mg (0.5 mL) IM .Every 4-6 weeks 12/19/21 suspension for injection #1 mL (Kenalog-40) oxycodone-acetaminophen 5 mg-325 1 tab PO TID PRN pain #90 tabs 02/09/22 mg tablet diclofenac sodium 1 % topical gel 2 g topical QID PRN pain #100 grams 02/14/22 lidocaine 5 % topical patch 1 patch topical DAILY PRN pain #15 02/14/22 (Lidoderm) ea methocarbamol 500 mg tablet 500 mg PO TID PRN muscle spasm #14 02/14/22 tabs Allergies Allergy/AdvReac Type Severity Reaction Status Date / Time Iodine and Iodide Containing Allergy Severe HIVES-ANAPHYLAXSIS Verified 04/21/21 14:26 Produc AND HIVES [IODINE AND IODIDE CONTAINING PRODUC] Penicillins [PENICILLINS] Allergy Severe HIVES-ANAPH Verified 04/21/21 14:26 LAXYSIS-HIV ES EWA Inhibitors AdvReac Intermediate Cough Verified 04/21/21 14:26 Review of Systems <Ann Marie Guillen [facility] - Last Filed: 02/14/22 18:32> Review of Systems Narrative: General: denies fever, chills, malaise, sweats, fatigue Head/Neck: denies headache, endorses neck pain and right shoulder pain, denies any dizziness or changes Eyes: denies visual changes, eye pain Cardio: denies chest pain, palpitations, edema Respiratory: denies dyspnea, cough, orthopnea GI: denies abdominal pain, nausea, vomiting, or diarrhea : denies dysuria, hematuria, urinary retention, frequency or incontinence MSK: denies joint pain, muscle weakness Skin: denies rash, itching, skin lesions or other Neuro: denies numbness, tingling Patient History <SHAE Rodríguez - Last Filed: 02/14/22 18:32> Medical History Ankle pain (2014) Arthritis Asthma Chronic low back pain Chronic pain syndrome Degenerative joint disease of knee Edema Environmental allergies Foot pain GERD (gastroesophageal reflux disease) Hordeolum externum (stye) Hypertension (1999) Hypothyroidism (2013) Kidney stones (~2006) Lumbosacral spondylosis Osteoarthritis (2000) Precancerous skin lesion Prolapsed bladder Urinary incontinence (2012) Vitamin D deficiency Surgical History Anesthesia History of hernia surgery Status post breast biopsy Status post hysterectomy (1999) Status post insertion of intrathecal pump (~2012) Family History Father Diabetes mellitus Heart disease Hypertension Grandfather Heart disease Cancer Heart attack Grandmother Diabetes mellitus Breast cancer Mother Diabetes mellitus Heart disease Hypertension High cholesterol Social History household members: significant other and children Smoking Status: Never smoker second hand exposure: No alcohol intake: current substance use type: does not use Smoking Status: Never smoker alcohol intake frequency: holidays/special occasions only Substance Use Type: does not use Exam <SHAE Rodríguez - Last Filed: 02/14/22 18:32> Narrative Exam Narrative: Independently reviewed vitals signs and nursing notes. General: cooperative, comfortable, in no acute distress, well groomed Head: atraumatic, symmetrical facial expressions Neck: supple, tenderness to palpation of the musculature on the right aspect of his cervical spine, pain exacerbated with turning head to the left, no range of motion deficit of her right shoulder, elbow, wrist or hand. Muscle tension is palpable, no tenderness over cervical spine Eyes: equal round and reactive, EOMI, conjunctiva normal Nose: nares patent, no rhinorrhea Mouth/Throat: moist mucus membranes Cardiovascular: regular rate and rhythm, no peripheral edema, warm extremities Respiratory: normal effort, able to speak in complete sentences, no audible wheezing, stridor, or rales. No retractions or tachypnea. GI: abdomen soft, nontender to palpation, nondistended, no masses, no exquisite tenderness with exam, without guarding or rebound. MSK: moves all extremities, neurovascularly intact, no weakness, normal tone Skin: brisk capillary refill, no rash, no erythema Neuro: normal speech and cognition, A&O x3 Psych: mental status is grossly normal, congruent mood, normal affect, pleasant and cooperative Initial Vital Signs Initial Vital Signs: Vital Signs Temperature 96.8 F L 02/14/22 14:08 Pulse Rate 69 02/14/22 14:08 Respiratory Rate 18 02/14/22 14:08 Blood Pressure 195/100 H 02/14/22 14:08 Pulse Oximetry 97 02/14/22 14:08 Oxygen Delivery Method 02/14/22 14:08 <Hayley Ortiz DO - Last Filed: 02/15/22 07:31> Initial Vital Signs Initial Vital Signs: Vital Signs Temperature 96.8 F L 02/14/22 14:08 Pulse Rate 69 02/14/22 14:08 Respiratory Rate 18 02/14/22 14:08 Blood Pressure 195/100 H 02/14/22 14:08 Pulse Oximetry 97 02/14/22 14:08 Oxygen Delivery Method 02/14/22 14:08 Procedures <SHAE Rodríguez - Last Filed: 02/14/22 18:32> Orthopedic Splinting/Casting Injury #1: Side: right Upper Extremity Injury Location: shoulder Upper Extremity Immobilizer: sling/shoulder immobilizer Post splinting neuro exam: intact and no change Post splinting vascular exam: intact Placed by: Nursing Course <SHAE Rodríguez - Last Filed: 02/14/22 18:32> Orders Ordered: Discontinued Medications Acetaminophen (Acetaminophen 325 Mg Tablet) 650 mg PO NOW ONE Stop: 02/14/22 15:04 Last Admin: 02/14/22 15:13 Dose: 650 mg Documented By: NR Ketorolac Tromethamine (Ketorolac 30 Mg/Ml Vial) 30 mg IM NOW ONE Stop: 02/14/22 15:04 Last Admin: 02/14/22 15:13 Dose: 30 mg Documented By: NR Methocarbamol (Methocarbamol 500 Mg Tablet) 500 mg PO NOW ONE Stop: 02/14/22 15:04 Last Admin: 02/14/22 15:13 Dose: 500 mg Documented By: NR Oxycodone/Acetaminophen (Oxycodone/Acetaminophen 5/325 Tablet) 1 tab PO NOW ONE Stop: 02/14/22 15:04 Last Admin: 02/14/22 15:13 Dose: 1 tab Documented By: NR Vital Signs Vital signs: Vital Signs - 8 hr 02/14/22 14:08 02/14/22 15:45 Temperature 96.8 F L Pulse Rate 69 62 Respiratory Rate 18 18 Blood Pressure 195/100 H 151/96 H Pulse Oximetry 97 96 Oxygen Delivery Method Room Air Room Air <Hayley Ortiz DO - Last Filed: 02/15/22 07:31> Orders Ordered: Discontinued Medications Acetaminophen (Acetaminophen 325 Mg Tablet) 650 mg PO NOW ONE Stop: 02/14/22 15:04 Last Admin: 02/14/22 15:13 Dose: 650 mg Documented By: NR Ketorolac Tromethamine (Ketorolac 30 Mg/Ml Vial) 30 mg IM NOW ONE Stop: 02/14/22 15:04 Last Admin: 02/14/22 15:13 Dose: 30 mg Documented By: NR Methocarbamol (Methocarbamol 500 Mg Tablet) 500 mg PO NOW ONE Stop: 02/14/22 15:04 Last Admin: 02/14/22 15:13 Dose: 500 mg Documented By: NR Oxycodone/Acetaminophen (Oxycodone/Acetaminophen 5/325 Tablet) 1 tab PO NOW ONE Stop: 02/14/22 15:04 Last Admin: 02/14/22 15:13 Dose: 1 tab Documented By: NR Vital Signs Vital signs: Vital Signs - 8 hr 02/14/22 14:08 02/14/22 15:45 Temperature 96.8 F L Pulse Rate 69 62 Respiratory Rate 18 18 Blood Pressure 195/100 H 151/96 H Pulse Oximetry 97 96 Oxygen Delivery Method Room Air Room Air MDM - Extremity Injury (Upper) <SHAE Rodríguez - Last Filed: 02/14/22 18:32> Imaging Data xr cervical spine: Radiologist's Impression: PROCEDURE:? XR CERVICAL SPINE 2V OR 3V ? INDICATIONS:? rt arm radiculopathy, atraumatic, hx arthritis ? TECHNIQUE:? 4 view(s) of the cervical spine were acquired.? ? COMPARISON:? None. ? FINDINGS:? ? Bones:? No fractures or dislocations to the C7-T1 level.? Mild degenerative disc disease in mid to lower cervical spine is seen.? The lateral masses of C1 appear intact on the odontoid view.? No suspicious bony lesions.? ? Soft tissues:? No prevertebral soft tissue swelling.? ? ? IMPRESSION:? Mild degenerative disc disease in mid to lower cervical spine.? No acute fracture or dislocation. ? ? Dictated by: Valdo Islas M.D. on 02/14/2022 at 15:48 ? ? Approved by: Valdo Islas M.D. on 02/14/2022 at 15:48 ? Extremity x-ray #1: Radiologist's Impression: PROCEDURE:? XR SHOULDER RT MIN 2V ? INDICATIONS:? pain ? TECHNIQUE:? 3 views of the shoulder were acquired.? ? COMPARISON:? None. ? FINDINGS:? ? Bones:? No fractures or dislocations.? Mild to moderate acromioclavicular joint osteoarthritic changes are seen.? No suspicious bony lesions.? Visualized ribs appear intact.? ? Soft tissues:? No suspicious soft tissue calcifications.? ? IMPRESSION:? No acute shoulder fracture or dislocation.? 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 ? ? Dictated by: Valdo Islas M.D. on 02/14/2022 at 15:45 ? ? Approved by: Valdo Islas M.D. on 02/14/2022 at 15:45 ? ECG Data Interpretation: EKG independently reviewed by myself at 1420 reveals normal sinus rhythm at 71 bpm with regular axis and intervals. No STEMI, ST segment changes, arrhythmia, or acute ischemic changes. MDM Narrative Medical decision making narrative: This is a 51-year-old female presents to the emergency department with onset of right shoulder pain acutely this morning when she woke up without any recent trauma, no history of neck pain, history of arthritis, degenerative disc disease, obesity, hypertension and hyperlipidemia, anxiety and depression with lumbosacral spondylosis. Patient is on oxycodone from her primary care provider for her chronic back pain, states that she took one at 1100 hours it did help her symptoms. X-ray of her right shoulder shows no acute shoulder fracture dislocation, mild to moderate shoulder joint osteoarthritis, significantly over the acromioclavicular joint. Patient reported that she slept on her right side, discussed that this type of right arm numbness and tingling and shooting pain is typically radiculopathy from a neck injury or neck pain. Cervical spine x-ray was obtained and shows mild degenerative disc disease in the mid to lower cervical spine without fracture or dislocation. Discussed that this is likely where her right arm symptoms are coming from, she was given a sling, this helped with her pain moderately, she was given Toradol, methocarbamol, Tylenol, and Percocet for her pain, she states that it was helpful and she feels better. Recommend she follow-up with her primary care provider, she was given a referral to [facility]. I prescribed her diclofenac gel, methocarbamol for muscle spasms, she states that she has oxycodone home which she can take in addition to this, encouraged her to use anti-inflammatories if she can tolerate them. Patient is appropriate and amenable to discharge home. Vital signs are stable on repeat examination is unremarkable. Patient has been informed of results. Patient has been given strict return to ER precautions for any new or worsening symptoms. Patient understands to follow up closely with outpatient providers as instructed. Patient understands plan and agrees to discharge home. All questions and concerns answered at this time. Discharge Plan Departure Patient Disposition: Home Clinical Impression: Radiculopathy affecting upper extremity, Degenerative disc disease, cervical Osteoarthritis (arthritis due to wear and tear of joints) Qualifiers: Osteoarthritis location: shoulder Osteoarthritis type: unspecified Laterality: right Qualified Code(s): M19.011 - Primary osteoarthritis, right shoulder Instructions: Degenerative Disc Disease, DI for Osteoarthritis, DI for Neck Sprain Activity Restrictions/Additional Instructions: *You have been diagnosed with osteoarthritis in your right shoulder with degenerative disc disease in your mid to lower cervical spine. There is no fracture, no swelling of the soft tissue, no acute abnormality. This is likely a flare your arthritis with radiculopathy/nerve pain down your arm. Please use the sling to help reduce overuse and ongoing inflammation of this area, try alternating heat and cold, you can use the muscle relaxer if it is helpful for spasm. Use your oxycodone to help treat your pain, and a topical modality like diclofenac gel and or lidocaine patches over where it is most painful. This will help your pain better than one method of pain treatment. Please follow-up with your primary care provider for a referral to physical therapy if you are having difficulty managing your pain. Joints like movement, try to be mobile but don't overdo it either. I hope you start feeling better soon. *What to do: *Please continue to take your regular medications as directed. [ x] New medication prescriptions sent to your pharmacy: [ [facility]] [ ] New medication written as a paper prescription [ ] No new medications given *Please follow up with your primary care provider in 2-3 days, call for an appointment. Let them know you were seen in the Emergency Department and that we asked that you be seen for follow-up. We will electronically transmit a record of today's note if your PCP is in our system *If you do not have a primary care provider please contact [phone] to establish care with one of the [facility] primary care providers. *Return to Emergency Department if you should have any new, worsening or concerning symptoms, such as [fever greater than 101F, chills, worsening pain, persistent vomiting or other bothersome symptoms] Prescriptions: New diclofenac sodium 1 % gel 2 g topical QID PRN (Reason: pain) Qty: 100 0RF Rx Instructions: apply to one or two areas of pain using dosing applicator up to 4 times daily methocarbamol 500 mg tablet 500 mg PO TID PRN (Reason: muscle spasm) Qty: 14 0RF lidocaine [Lidoderm] 5 % adhesive patch,medicated 1 patch topical DAILY PRN (Reason: pain) Qty: 15 0RF Rx Instructions: leave on most painful area for up to 12 hrs No Action citalopram 20 mg tablet 20 mg PO DAILY Qty: 90 3RF Rx Instructions: Take 1 tablet by mouth daily for depression Combivent Respimat 20-100 mcg/actuation mist 1 puff INHALATION QID PRN (Reason: Shortness Of Breath) Qty: 12 3RF Rx Instructions: space evenly during waking hours losartan 50 mg tablet 75 mg PO DAILY Qty: 135 3RF montelukast 10 mg tablet See Rx Instructions .ROUTE .COMPLEX Qty: 90 3RF Dose Instruction: Take 1 tablet by mouth at bedtime Rx Instructions: Take 1 tablet by mouth at bedtime omeprazole 40 mg capsule,delayed release(DR/EC) 40 mg PO DAILY Qty: 90 3RF spironolactone 100 mg tablet 100 mg PO DAILY Qty: 90 3RF Rx Instructions: Take 1 tablet by mouth daily for blood pressure oxycodone-acetaminophen 5-325 mg tablet 1 tab PO TID PRN (Reason: pain) Qty: 90 0RF Rx Instructions: Exempt albuterol sulfate 2.5 mg /3 mL (0.083 %) solution for nebulization 2.5 mg INHALATION QID PRN (Reason: SOB, wheezes, cough) Qty: 90 2RF Rx Instructions: 1 vial inhaled up to 4x/day as needed fluticasone propion-salmeterol 500-50 mcg/dose blister with device 2 inh inhalation Q12H Qty: 360 11RF triamcinolone acetonide [Kenalog-40] 40 mg/mL suspension 20 mg IM .Every 4-6 weeks Qty: 1 11RF Rx Instructions: Inject 20mg IM monthly for asthma exacerbation prevention during allergy season Referrals: Mary Zelaya ARNP [Primary Care Provider] - Visit Report Forms: Patient Portal/API <Hayley Ortiz DO - Last Filed: 02/15/22 07:31> Cosign ED Attending Cosrafiaature Attestation: I was immediately available in the department for consultation. Documentation has been reviewed. I agree with assessment and plan.
[2022-02-14] MEDS: KETOROLAC 30 MG/ML VIAL IM (15:13)
[2022-02-14] MEDS: OXYCODONE/ACETAMINOPHEN 5/325 TABLET 1 TAB PO (15:13)
[2022-02-14] MEDS: ACETAMINOPHEN 325 MG TABLET 650 MG PO (15:13)
[2022-02-14] MEDS: methocarbamoL 500 MG TABLET PO (15:13)
[2022-02-14 15:45] VITALS: BP 151/96; PULSE 62; RESP 18; O2SAT 96
== END 2022-02-14 16:10 | disposition home or self-care (01) ==
PROVIDERS: Emergency Provider Nurse Practitioner Critical Care Medicine; PCP Nurse Practitioner
DX: M50.03 Cervical disc disorder with myelopathy, cervicothoracic region (principal); M50.13 Cervical disc disorder with radiculopathy, cervicothoracic region; M19.011 Primary osteoarthritis, right shoulder; R07.9 Chest pain, unspecified
CPT/HCPCS: 72040; 73030; 93005; 93010; 96372; 99284; J1885

== ENCOUNTER → 2022-02-24 12:57 | Outpatient (CLI) | payer BC, SELFPAY ==
[2021-06-28 22:10] VITALS: BMI 49.4
--- NOTE | 2022-02-24 12:58 | DI.MG.S_ITS ---
BILATERAL DIGITAL SCREENING MAMMOGRAM 3D/2D WITH CAD: 02/24/2022 CLINICAL: Routine screening. Family history of breast cancer. Comparison is made to exams dated: 03/26/2019 mammogram and 05/29/2017 mammogram - [facility]. The tissue of both breasts is predominantly fatty. Current study was also evaluated with a Computer Aided Detection (CAD) system. No significant masses, calcifications, or other findings are seen in either breast. There has been no significant interval change. IMPRESSION: NEGATIVE There is no mammographic evidence of malignancy. A 1 year screening mammogram is recommended. Based on the Tyrer Cuzick model (a risk assessment model) the patient's lifetime risk is 3.8% and her 10 year risk is 1.0%. According to the ACR, ACS, and NCCN guidelines, an annual breast MRI exam along with mammogram is recommended if the patient's lifetime risk is 20% or greater. This exam was interpreted at Station ID: [id number]. NOTE: For mammograms, a report in lay terms will be sent to the patient. Approximately 15% of breast malignancies will not be visualized mammographically. In the management of a palpable breast mass, a negative mammogram must not discourage biopsy of a clinically suspicious lesion. Electronically Signed By: David trinh/lisa:02/26/2022 10:03:07 letter sent: Normal Exam ACR BI-RADS Category 1: Negative [id number]
--- NOTE | 2022-02-24 12:58 | DI.MRI.S_ITS ---
PROCEDURE: MR CERVICAL SPINE WO CON INDICATIONS: Right arm radiculopathy TECHNIQUE: Noncontrast sagittal T1 spin echo and T2 fast spin echo, sagittal STIR, foraminal oblique sagittal T2 fast spin echo, and axial gradient echo or T2 fast spin echo through the cervical spine. COMPARISON: None. FINDINGS: Normal cervical spine vertebral body height and alignment. No suspicious focal marrow signal abnormality or bone marrow edema. Normal morphology and signal intensity of the cervical cord. There is no syrinx. Prevertebral and paraspinous soft tissues demonstrate no acute finding. C2-C3: No spinal canal or neural foraminal stenosis. C3-C4: No spinal canal stenosis. Moderate left and mild right neural foraminal narrowing due to facet and uncovertebral hypertrophy. C4-C5: No spinal canal stenosis. Moderate left and mild right neural foraminal narrowing due to facet and uncovertebral hypertrophy. C5-C6: No spinal canal stenosis. Mild bilateral neural foraminal narrowing due to facet and uncovertebral hypertrophy. C6-C7: Diffuse disc bulge with a superimposed broad-based posterior disc protrusion flattens the ventral cord and produces overall moderate spinal canal stenosis. Facet and uncovertebral hypertrophy combine to produce mild bilateral neural foraminal narrowing. C7-T1: No spinal canal or neural foraminal stenosis. IMPRESSION: Moderate spinal canal stenosis at C6-C7 due to a sizable disc protrusion. Moderate left-sided neural foraminal stenosis at C3-C4 and C4-C5. Mild right-sided neural foraminal narrowing at C3-C4, C4-C5, and C5-C6. Dictated by: Maxx Colin M.D. on 02/26/2022 at 8:53 Approved by: Maxx Colin M.D. on 02/26/2022 at 8:58
== END ==
LOC: MAMMO 12:58
PROVIDERS: PCP Nurse Practitioner; Referring Provider Nurse Practitioner; Visit Provider Nurse Practitioner
DX: Z80.3 Family history of malignant neoplasm of breast (principal); Z12.31 Encounter for screening mammogram for malignant neoplasm of breast; M50.123 Cervical disc disorder at C6-C7 level with radiculopathy; M48.02 Spinal stenosis, cervical region
CPT/HCPCS: 72141; 77063; 77067

== ENCOUNTER → 2022-04-04 07:20 | Outpatient (CLI) | payer BC, SELFPAY ==
[2021-06-28 22:10] VITALS: BMI 49.4
--- NOTE | 2022-04-04 | DI.CT.S_ITS ---
PROCEDURE: CT CERVICAL SPINE WO CON INDICATIONS: LUMBAR AND CERVICAL RADICULOPATHY TECHNIQUE: Noncontrast 3 mm thick sections acquired from the skull base to the T4 level. Sagittal and coronal reformats were then constructed. For radiation dose reduction, the following was used: automated exposure control, adjustment of mA and/or kV according to patient size. COMPARISON: [facility], CR, XR CERVICAL SPINE 2V OR 3V, 02/14/2022, 15:12. [facility], MR, MR CERVICAL SPINE WO CON, 02/24/2022, 14:15. [facility], MR, MR LUMBAR SPINE WO CON, 04/04/2022, 7:37. FINDINGS: Image quality: This examination is somewhat limited by quantum mottle artifact. Bones: No fractures or dislocations. Visualized superior ribs are intact. Mild degenerative changes are seen, including mild disc space narrowing at C6-C7. Milder degenerative changes are seen elsewhere. There is overall straightening of the normal cervical lordosis. Soft tissues: Prevertebral soft tissues are normal in thickness. No paravertebral hematomas. No apical pneumothoraces. IMPRESSION: Mild degenerative changes can be seen by CT, which are worst at C6-C7. Straightening of the normal cervical lordosis is seen, which is commonly observed in patients with muscular spasm. Dictated by: Arturo Atkins M.D. on 04/04/2022 at 9:36 Approved by: Arturo Atkins M.D. on 04/04/2022 at 9:37
--- NOTE | 2022-04-04 | DI.MRI.S_ITS ---
PROCEDURE: MR LUMBAR SPINE WO CON INDICATIONS: LUMBAR AND CERVICAL RADICULOPATHY TECHNIQUE: Noncontrast sagittal T1 spin echo and T2 fast echo, sagittal STIR, and T2 fast spin echo through the lumbar spine. In cases with scoliosis, additional coronal T2 fast spin echo may be performed. COMPARISON: [facility], MR, L-SPINE WITHOUT CONTRAST, 10/23/2016, 7:03. [facility], CT, CT CERVICAL SPINE WO CON, 04/04/2022, 8:09. [facility], MR, L-SPINE WITHOUT CONTRAST, 05/26/2012, 16:29. FINDINGS: Image quality: Excellent. Alignment and Curvature: There is normal bony alignment. Bone Marrow: Marrow is of normal overall signal. No acute vertebral body compression fractures. Spinal Cord: Conus medullaris terminates at the L1 level. Visualized cord demonstrates normal signal and size. Paraspinous Soft Tissues: No paravertebral masses. T12-L1: Normal appearance. L1-L2: Normal appearance. L2-L3: Normal appearance. L3-L4: Moderate loss of disc height is seen. Loss of disc signal is seen. Moderate disc bulge is seen, which is eccentric to the right, with a right foraminal disc protrusion, as on series 5, image 22. Mild facet joint hypertrophy is seen. There is moderate right-sided and mild left-sided neural foraminal narrowing. Moderate central canal narrowing is seen. No significant change from the prior. L4-L5: Moderate loss of disc height is seen. Loss of disc signal is seen. Reactive marrow endplate changes are seen, which are hyperintense on T1-weighted and T2-weighted imaging and most consistent with fatty metaplasia (Modic type II changes). Moderate generalized disc bulge is seen. Moderate facet joint hypertrophy is seen. Moderate bilateral neural foraminal narrowing is seen. Mild central canal narrowing is seen. There is mild progression of degenerative change compared to 2017. L5-S1: The disc height is well-preserved. Loss of disc signal is seen at this level. Moderate disc bulge is seen, which is eccentric to the left. There is moderate right-sided and at least moderate left-sided facet hypertrophy. There is at least moderate left-sided neural foraminal narrowing, with a mild degree of compression upon the exiting left L5 nerve root. No right-sided neural foraminal narrowing is seen. No central canal narrowing is seen. When comparison is made with the prior images, these findings are similar. IMPRESSION: Lower lumbar spine degenerative changes are seen, which are mildly progressed at L4-L5 compared to 2017. Dictated by: Arturo Atkins M.D. on 04/04/2022 at 14:02 Approved by: Arturo Atkins M.D. on 04/04/2022 at 14:05
== END ==
PROVIDERS: PCP Nurse Practitioner; Referring Provider Neurological Surgery; Visit Provider Neurological Surgery
DX: M47.22 Other spondylosis with radiculopathy, cervical region (principal); M47.26 Other spondylosis with radiculopathy, lumbar region
CPT/HCPCS: 72125; 72148

== ENCOUNTER → 2022-06-26 10:29 | Outpatient (CLI) | payer BC, SELFPAY ==
[2021-06-28 22:10] VITALS: BMI 49.4
--- NOTE | 2022-06-26 10:32 | DI.US.S_ITS ---
LIMITED ULTRASOUND OF RIGHT BREAST: 06/26/2022 CLINICAL: Palpable right breast lump. Comparison is made to exams dated: 06/26/2022 mammogram, 02/24/2022 mammogram, 03/26/2019 mammogram, and 05/29/2017 mammogram - [facility]. Real-time ultrasound of the right breast 10-11 o'clock region was performed. Billings scale images of the real-time examination were reviewed. No significant abnormalities were seen sonographically in the right breast. IMPRESSION: NEGATIVE There is no sonographic evidence of malignancy. There is no abnormality seen in the right breast to correspond with the tenderness, however, clinical followup is recommended. Return to annual mammogram screening schedule is recommended. Future imaging is recommended as follows: 02/25/2023 screening mammogram. This exam was interpreted at Station ID: [id number]. Electronically Signed By: David trinh/lisa:06/26/2022 16:24:01 letter sent: Clinical Evaluation Ultrasound BI-RADS: 1 Negative
--- NOTE | 2022-06-26 10:32 | DI.MG.S_ITS ---
UNILATERAL RIGHT DIGITAL DIAGNOSTIC MAMMOGRAM 3D/2D: 06/26/2022 CLINICAL: Right breast mass. Comparison is made to exams dated: 02/24/2022 mammogram, 03/26/2019 mammogram, and 05/29/2017 mammogram - [facility]. The right breast is almost entirely fatty (category a/<25% glandular tissue). No significant masses, calcifications, or other findings are seen in the breast. IMPRESSION: INCOMPLETE: NEEDS ADDITIONAL IMAGING EVALUATION There is no abnormality seen in the right breast to correspond with the tenderness in the upper outer quadrant, however, ultrasound is recommended. Based on the Tyrer Cuzick model (a risk assessment model) the patient's lifetime risk is 3.8% and her 10 year risk is 1.0%. According to the ACR, ACS, and NCCN guidelines, an annual breast MRI exam along with mammogram is recommended if the patient's lifetime risk is 20% or greater. This exam was interpreted at Station ID: [id number]. NOTE: For mammograms, a report in lay terms will be sent to the patient. Approximately 15% of breast malignancies will not be visualized mammographically. In the management of a palpable breast mass, a negative mammogram must not discourage biopsy of a clinically suspicious lesion. Electronically Signed By: David lCayton M.D. ar/:06/26/2022 16:22:45 ACR BI-RADS Category 0: Incomplete 3340F
== END ==
PROVIDERS: PCP Nurse Practitioner; Referring Provider Nurse Practitioner; Visit Provider Nurse Practitioner
DX: N63.10 Unspecified lump in the right breast, unspecified quadrant (principal); Z80.3 Family history of malignant neoplasm of breast; R92.2 Inconclusive mammogram
CPT/HCPCS: 76642; 77065; G0279

== ENCOUNTER → 2022-07-24 14:13 | Outpatient (CLI) | payer BC, SELFPAY ==
[2021-06-28 22:10] VITALS: BMI 49.4
--- NOTE | 2022-07-24 14:14 | DI.RAD.S_ITS ---
PROCEDURE: XR CHEST 2V INDICATIONS: SOB, cough TECHNIQUE: 2 views of the chest were acquired. COMPARISON: [facility], CR, XR CHEST 2V, 12/12/2021, 18:19. FINDINGS: Surgical changes and devices: None. Lungs and pleura: Lungs are clear. No pleural effusions or pneumothorax. Mediastinum: Mediastinal contours are normal. Heart size is normal. Bones and chest wall: No suspicious bony abnormalities. Soft tissues appear unremarkable. IMPRESSION: No source for cough and shortness of breath identified. Dictated by: Kin Cunha RRA Interpreted: Andrew eVlez MD on 07/24/2022 at 15:04 Transcribed by: KESHIA on 07/24/2022 at 15:04 Approved by: Andrew Velez M.D. on 07/24/2022 at 17:29
== END ==
PROVIDERS: PCP Nurse Practitioner; Referring Provider Nurse Practitioner; Visit Provider Nurse Practitioner
DX: R05.9 Cough, unspecified (principal); R06.02 Shortness of breath
CPT/HCPCS: 71046

== ENCOUNTER 2023-01-10 07:41 | Day surgery (SDC) | payer BC, SELFPAY ==
[2021-06-28 22:10] VITALS: BMI 49.4
--- NOTE | 2023-01-10 | PATH_ITS ---
[facility] Accession Number: [id number] No. of containers..02 Tissue . 01 Material submitted: . PART A: colon - ASCENDING COLON POLYP PART B: colon - TRANSVERSE COLON POLYP . 01 Diagnosis: A. Ascending Colon Polyp: Tubular adenoma. . B. Transverse Colon Polyp: Tubular adenoma. [facility] 01/17/2023 1252 Local . 01 Electronically signed: . Simeon Gann MD, PhD, Pathologist NPI- [id number] . 01 Gross description: . Part A: ASCENDING COLON POLYP: Received in formalin is 1 fragment(s) of brewer, soft tissue measuring 0.8 x 0.7 x 0.4 cm submitted entirely in 1 cassette(s) Part B: TRANSVERSE COLON POLYP: Received in formalin is 2 fragment(s) of brewer, soft tissue measuring 0.9 x 0.5 x 0.4 cm to 0.7 x 0.3 x 0.2 cm submitted entirely in 1 cassette(s) /[facility] 01/15/2023 1640 Local . 01 Pathologist provided ICD-10: D12.2, D12.3 . 01 CPT . 113624, 140014 Specimen Comment: A courtesy copy of this report has been sent to [phone] Performed at: 01 [facility] [address] [place] [address] [address], [place], [place] [id number] MD Zack Bunn MD Phone: [phone]
[2023-01-10 08:00] VITALS: BP 134/80; PULSE 61; RESP 16; TEMP 36.4; O2SAT 94; BMI 45.6
[2023-01-10] MEDS: LACTATED RINGERS 1,000 ML 42 ML IV (08:30)
--- NOTE | 2023-01-10 08:34 | PM.HP.1 ---
History of Present Illness History of Present Illness Date Patient Seen: 01/10/23 Time Patient Seen: 08:34 Chief complaint: [facility] [place] Narrative: Mally is a 52-year-old woman who is here for colonoscopy. She has never had 1 before. She has no known family history of colon cancer. She has no melena or hematochezia. COUNT INCLUDES THE [facility] Medical History Ankle pain (2014) Arthritis Asthma Cervical disc disease Chronic low back pain Chronic pain syndrome Class 3 obesity Degenerative joint disease of knee Edema Environmental allergies Family history of breast cancer Foot pain Fusion of spine, cervical region GERD (gastroesophageal reflux disease) Hordeolum externum (st) Hypertension (1999) Hypothyroidism (2013) Kidney stones (~2006) Lumbosacral spondylosis Osteoarthritis (2000) Precancerous skin lesion Prolapsed bladder Urinary incontinence (2012) Vitamin D deficiency Surgical History Anesthesia H/O cervical discectomy History of hernia surgery Status post breast biopsy Status post hysterectomy (1999) Status post insertion of intrathecal pump (~2012) Family History Father Diabetes mellitus Heart disease Hypertension Grandfather Heart disease Cancer Heart attack Grandmother Diabetes mellitus Breast cancer Mother Diabetes mellitus Heart disease Hypertension High cholesterol Aunt Breast cancer Aunt Breast cancer Social History household members: significant other and children Smoking Status: Never smoker second hand exposure: No alcohol intake: current substance use type: does not use Meds Home Medications and Allergies Home Medications Medication Instructions Recorded Confirmed Type albuterol sulfate 2.5 mg/3 mL 2.5 mg (3 mL) inhalation QID PRN 12/13/21 01/10/23 Rx (0.083 %) solution for nebulization SOB, wheezes, cough #90 mL fluticasone 500 mcg-salmeterol 50 2 inh inhalation Q12H #360 ea 12/13/21 01/10/23 Rx mcg/dose blistr powdr for inhalation losartan 50 mg tablet 75 mg PO DAILY #135 tabs 08/10/22 01/10/23 Rx montelukast 10 mg tablet See Rx Instructions .Route 12/23/22 05/25/23 Rx .COMPLEX #90 tabs spironolactone 100 mg tablet 100 mg PO DAILY #90 tabs 08/10/22 01/10/23 Rx triamcinolone acetonide 40 mg/mL 20 mg (0.5 mL) IM .Every 4-6 weeks 08/10/22 01/10/23 Rx suspension for injection #1 mL (Kenalog-40) venlafaxine 37.5 mg 37.5 mg PO BEDTIME #90 tabs 08/10/22 01/10/23 Rx tablet,extended release 24 hr oxycodone-acetaminophen 5 mg-325 1 tab PO TID PRN pain #90 tabs 01/07/23 01/10/23 Rx mg tablet Allergies Allergy/AdvReac Type Severity Reaction Status Date / Time Iodine and Iodide Containing Allergy Severe HIVES-ANAPHYLAXSIS Verified 01/10/23 07:49 Produc AND HIVES [IODINE AND IODIDE CONTAINING PRODUC] Penicillins [PENICILLINS] Allergy Severe HIVES-ANAPH Verified 01/10/23 07:49 LAXYSIS-HIV ES EWA Inhibitors AdvReac Intermediate Cough Verified 01/10/23 07:49 Exam Vital Signs (past 8 hours): - 01/10/23 08:00 Temperature 97.6 F Pulse Rate 61 Respiratory Rate 16 Blood Pressure 134/80 Pulse Oximetry 94 Oxygen Delivery Method Room Air Oxygen Delivery Method Room Air Const General: healthy appearing Assessment & Plan Assessment and plan (1) Colon cancer screening: Status: Acute Plan Mally is a 52-year-old woman who is here for a colonoscopy for colon cancer screening. We reviewed the risks benefits and rationale and she would like to proceed.
--- NOTE | 2023-01-10 09:47 | PM.OP.COLON ---
Operative Date/Time/Diagnoses Date of procedure: 01/10/23 Time of procedure: 09:47 Pre-op diagnosis: Colon cancer screening Post-op diagnosis: same Procedure & Clinicians Study performed: Colonoscopy Surgeon: Brent Laughlin Procedure Notes Procedure in detail: Surgeon: Brent Laughlin MD Anesthesia: Reza King MD Procedure: The patient was brought to the endoscopy suite, placed in left lateral decubitus position. The patient was connected to monitoring devices. A time-out was performed. Sedation was administered. Once the patient was adequately sedated, a digital rectal exam was performed and was normal. The scope was then inserted and advanced to the cecum where the appendiceal orifice was identified and photographed. The scope was then slowly withdrawn over greater than 6 minutes. The mucosa was thoroughly inspected. There were 3 small polyps, each about 4 mm. One was in the ascending colon and 2 were in the transverse colon. The scope was retroflexed in the rectum. No other abnormalities were seen. The scope was straightened and removed. The patient was awakened and brought to recovery. Scope withdrawal time: 13 minutes Sedation time: 23 minutes EBL: 5 mL Findings: A 4 mm polyp in the ascending colon and 2 4 mm polyps transverse Post-procedure Disposition: PACU
[2023-01-10 09:49] VITALS: BP 128/81; PULSE 61; RESP 20; TEMP 35.8; O2SAT 95
== END 2023-01-10 10:11 | disposition home or self-care (01) ==
PROVIDERS: PCP Nurse Practitioner; Referring Provider Surgery; Visit Provider Surgery
PROC: 0DJD8ZZ Inspection of Lower Intestinal Tract, Via Natural or Artificial Opening Endoscopic (ICD-10-PCS; CPT 45378; principal; 2023-01-10 08:45)
DX: Z12.11 Encounter for screening for malignant neoplasm of colon (principal); D12.2 Benign neoplasm of ascending colon; D12.3 Benign neoplasm of transverse colon
CPT/HCPCS: 45380; 45378; J2704; J3010

== ENCOUNTER → 2023-05-15 16:32 | Outpatient (CLI) | payer BC, SELFPAY ==
[2021-06-28 22:10] VITALS: BMI 49.4
[2023-05-15 18:20] LABS: HEMOLYSIS < 15 (0-50); Iron 94 ug/dL (37-170)
[2023-05-15 18:26] LABS: Alkaline Phosphatase 79 U/L (38-126); Calcium 10.4 mg/dL (8.4-10.2); Phosphorous 4.6 mg/dL (2.5-4.5)
[2023-05-15 18:34] LABS: Percent Iron Saturation 26 % (15-50); Total Iron Binding Capacity 362 ug/dL (265-497); Transferrin 273 mg/dL (206-381)
[2023-05-15 18:38] LABS: Vitamin D 25 Hydroxy (D3) 69.1 ng/mL (30.0-100.0)
[2023-05-15 18:57] LABS: Ferritin 112 ng/mL (11-264)
[2023-05-15 19:28] LABS: Folate 5.9 ng/mL (2.76-20.0); Vitamin B12 Reflex MMA if <400 > 1000 pg/mL (239-931)
[2023-05-16 09:20] LABS: Alanine Aminotransferase 24 IU/L (<35); Albumin 4.5 g/dL (3.5-5.0); Albumin Globulin Ratio 1.4 (1.0-2.8); Aspartate Aminotransferase 22 IU/L (14-36); BUN Creatinine Ratio 37.5 (6-22); Bilirubin Total 0.4 mg/dL (0.2-1.3); Blood Urea Nitrogen 27 mg/dL (7-17); Carbon Dioxide 23 mmol/L (22-32); Chloride 100 mmol/L (98-107); Estimated Glomerular Filt Rate > 60 mL/min (>60); Globulin 3.3 g/dL (1.7-4.1); Glucose 116 mg/dL (70-100); HEMOLYSIS < 15 (0-50); Potassium 4.4 mmol/L (3.4-5.1); Sodium 137 mmol/L (137-145); Total Protein 7.8 g/dL (6.3-8.2)
[2023-05-18 10:33] LABS: Parathyroid Hormone, Intact 26 pg/mL (15-65)
== END ==
PROVIDERS: PCP Nurse Practitioner; Referring Provider Family Medicine; Visit Provider Family Medicine
DX: E46 Unspecified protein-calorie malnutrition (principal); R63.8 Other symptoms and signs concerning food and fluid intake; Z98.84 Bariatric surgery status
CPT/HCPCS: 36415; 80053; 82306; 82310; 82607; 82728; 82746; 83036; 83540; 83550; 83970; 84075; 84100

== ENCOUNTER → 2023-09-06 10:13 | Outpatient (CLI) | payer BC, SELFPAY ==
[2021-06-28 22:10] VITALS: BMI 49.4
[2023-09-06 10:41] LABS: Add Manual Diff / Slide Review NO; Basophils Absolute Auto 100 /uL (0-100); Basophils Percent Auto 0.6 % (0-2); Eosinophils Absolute Auto 0 /uL (0-450); Eosinophils Percent Auto 0.6 % (2-4); Hematocrit 39.3 % (36-46); Hemoglobin 13.3 g/dL (12.0-16.0); Lymphocytes Absolute Auto 2200 /uL (1100-4500); Lymphocytes Percent Auto 27.5 % (25-40); Mean Corpuscular HGB Conc 33.9 % (30-36); Mean Corpuscular Hemoglobin 32.2 PG (26-34); Mean Corpuscular Volume 94.9 fL (80-100); Monocytes Absolute Auto 600 /uL (0-900); Monocytes Percent Auto 8.1 % (3-14); Neutrophils Absolute Auto 5000 /uL (1500-7000); Neutrophils Percent Auto 63.2 % (50-75); Platelet Count 256 X10^3/uL (150-400); Red Blood Cell Count 4.14 X10^6/uL (4.0-5.2); Red Cell Distribution Width 12.7 % (11.6-14.8); White Blood Cell Count 7.9 X10^3/uL (4.5-11.0)
[2023-09-06 10:54] LABS: Alanine Aminotransferase 19 IU/L (<35); Albumin 4.3 g/dL (3.5-5.0); Albumin Globulin Ratio 1.1 (1.0-2.8); Alkaline Phosphatase 70 U/L (38-126); Aspartate Aminotransferase 21 IU/L (14-36); BUN Creatinine Ratio 23.3 (6-22); Bilirubin Total 0.6 mg/dL (0.2-1.3); Blood Urea Nitrogen 17 mg/dL (7-17); Calcium 9.8 mg/dL (8.4-10.2); Carbon Dioxide 29 mmol/L (22-32); Chloride 100 mmol/L (98-107); Cholesterol 184 mg/dL (140-199); Estimated Glomerular Filt Rate > 60 mL/min (>60); Globulin 3.8 g/dL (1.7-4.1); Glucose 99 mg/dL (70-100); HDL Cholesterol 54 mg/dL (40-60); HEMOLYSIS 21 (0-50); HEMOLYSIS < 15 (0-50); Iron 107 ug/dL (37-170); LDL Cholesterol Calculated 114 mg/dL (<100); Potassium 4.1 mmol/L (3.4-5.1); Sodium 137 mmol/L (137-145); Total Protein 8.1 g/dL (6.3-8.2); Triglycerides 81 mg/dL (35-150)
[2023-09-06 11:03] LABS: Percent Iron Saturation 35 % (15-50); Total Iron Binding Capacity 305 ug/dL (265-497); Transferrin 267 mg/dL (206-381)
[2023-09-06 11:12] LABS: Free T3, Triiodothyronine Free 3.16 pg/mL (2.77-5.27); Free T4, Direct Thyroxine 0.94 ng/dL (0.78-2.19)
[2023-09-06 11:25] LABS: Thyroid Stimulating Hormone 1.16 uIU/mL (0.47-4.68)
[2023-09-06 11:43] LABS: Vitamin B12 > 1000 pg/mL (239-931)
== END ==
PROVIDERS: PCP Nurse Practitioner; Referring Provider Nurse Practitioner; Visit Provider Nurse Practitioner
DX: Z90.3 Acquired absence of stomach [part of] (principal); D50.9 Iron deficiency anemia, unspecified; I10 Essential (primary) hypertension; E78.2 Mixed hyperlipidemia; J45.909 Unspecified asthma, uncomplicated; F41.8 Other specified anxiety disorders; M47.817 Spondylosis without myelopathy or radiculopathy, lumbosacral region
CPT/HCPCS: 36415; 80053; 80061; 82607; 83540; 83550; 84439; 84443; 84481; 85025

== ENCOUNTER → 2023-11-08 17:38 | Outpatient (CLI) | payer BC, SELFPAY ==
[2021-06-28 22:10] VITALS: BMI 49.4
== END ==
PROVIDERS: PCP Nurse Practitioner; Visit Provider Nurse Practitioner Family
DX: L92.3 Foreign body granuloma of the skin and subcutaneous tissue (principal)
CPT/HCPCS: 87070; 87075; 87077; 87147; 87205

== ENCOUNTER → 2024-02-01 12:42 | Outpatient (CLI) | payer BC, SELFPAY ==
[2021-06-28 22:10] VITALS: BMI 49.4
--- NOTE | 2024-02-01 12:43 | DI.RAD.S_ITS ---
PROCEDURE: XR RIBS LT MIN 3V W CXR1V INDICATIONS: Left thoracic/rib pain TECHNIQUE: 2 views of the ribs were acquired, along with a single view chest. COMPARISON: None. FINDINGS: Surgical changes and devices: Upper abdominal surgical clips Bones and chest wall: No acute displaced fracture. Lungs and pleura: No dense consolidation or pleural effusion Mediastinum: Unremarkable IMPRESSION: No acute radiographic abnormality. If there is high concern for occult injury, consider repeat radiography or cross-sectional imaging. Dictated by: Maximiliano Jaeger M.D. on 02/01/2024 at 13:40 Approved by: Maximiliano Jaeger M.D. on 02/01/2024 at 13:41
== END ==
PROVIDERS: PCP Nurse Practitioner; Referring Provider Physician Assistant Surgical; Visit Provider Physician Assistant Surgical
DX: R07.81 Pleurodynia (principal)
CPT/HCPCS: 71101

== ENCOUNTER → 2024-02-03 11:08 | Outpatient (CLI) | payer BC, SELFPAY ==
[2021-06-28 22:10] VITALS: BMI 49.4
[2024-02-03 12:15] LABS: Add Manual Diff / Slide Review NO; Basophils Absolute Auto 100 /uL (0-100); Basophils Percent Auto 0.9 % (0-2); Eosinophils Absolute Auto 100 /uL (0-450); Hematocrit 37.7 % (36-46); Hemoglobin 12.9 g/dL (12.0-16.0); Lymphocytes Absolute Auto 2700 /uL (1100-4500); Lymphocytes Percent Auto 32.4 % (25-40); Mean Corpuscular HGB Conc 34.1 % (30-36); Mean Corpuscular Hemoglobin 32.9 PG (26-34); Mean Corpuscular Volume 96.5 fL (80-100); Monocytes Absolute Auto 700 /uL (0-900); Monocytes Percent Auto 8.4 % (3-14); Neutrophils Absolute Auto 4700 /uL (1500-7000); Neutrophils Percent Auto 57.3 % (50-75); Platelet Count 251 X10^3/uL (150-400); White Blood Cell Count 8.2 X10^3/uL (4.5-11.0)
[2024-02-03 12:34] LABS: HEMOLYSIS < 15 (0-50); Iron 151 ug/dL (37-170)
[2024-02-03 12:39] LABS: Alanine Aminotransferase 20 IU/L (<35); Albumin 4.1 g/dL (3.5-5.0); Albumin Globulin Ratio 1.2 (1.0-2.8); Alkaline Phosphatase 81 U/L (38-126); Aspartate Aminotransferase 23 IU/L (14-36); BUN Creatinine Ratio 33.3 (6-22); Bilirubin Total 0.7 mg/dL (0.2-1.3); Blood Urea Nitrogen 23 mg/dL (7-17); Calcium 9.6 mg/dL (8.4-10.2); Carbon Dioxide 28 mmol/L (22-32); Chloride 103 mmol/L (98-107); Estimated Glomerular Filt Rate > 60 mL/min (>60); Globulin 3.4 g/dL (1.7-4.1); Glucose 103 mg/dL (70-100); HEMOLYSIS < 15 (0-50); Potassium 4.3 mmol/L (3.4-5.1); Sodium 137 mmol/L (137-145); Total Protein 7.5 g/dL (6.3-8.2)
[2024-02-03 12:45] LABS: Percent Iron Saturation 51 % (15-50); Total Iron Binding Capacity 297 ug/dL (265-497); Transferrin 230 mg/dL (206-381)
[2024-02-03 13:09] LABS: Vitamin D 25 Hydroxy (D3) 83.8 ng/mL (30.0-100.0)
[2024-02-03 13:15] LABS: Ferritin 227 ng/mL (11-264)
[2024-02-03 13:46] LABS: Folate > 20.0 ng/mL (2.76-20.0); Vitamin B12 > 1000 pg/mL (239-931)
[2024-02-06 03:40] LABS: Calcium 9.9 mg/dL (8.7-10.2); Parathyroid Hormone, Intact 17 pg/mL (15-65)
[2024-02-06 23:08] LABS: Vitamin B1 234.2 nmol/L (66.5-200.0)
[2024-02-08 17:08] LABS: Vitamin A 62.5 ug/dL (20.1-62.0)
== END ==
PROVIDERS: PCP Nurse Practitioner; Referring Provider Nurse Practitioner; Visit Provider Nurse Practitioner
DX: Z90.3 Acquired absence of stomach [part of] (principal)
CPT/HCPCS: 36415; 80053; 82306; 82310; 82607; 82728; 82746; 83540; 83550; 83970; 84425; 84590; 85025

== ENCOUNTER → 2024-05-05 13:31 | Outpatient (CLI) | payer BC, SELFPAY ==
[2021-06-28 22:10] VITALS: BMI 49.4
[2024-05-05 15:10] LABS: Influenza A - CEPHEID Flu A NEGATIVE (NEGATIVE); Influenza B - CEPHEID Flu B NEGATIVE (NEGATIVE); Respiratory Syncytial Virus Negative (Negative)
[2024-05-05 15:14] LABS: COVID-19 CEPHEID 4-PLEX PCR Negative (Negative)
== END ==
PROVIDERS: PCP Nurse Practitioner; Visit Provider Physician Assistant Surgical
DX: J02.9 Acute pharyngitis, unspecified (principal); R05.1 Acute cough
CPT/HCPCS: 0241U; 87070

== ENCOUNTER → 2025-02-13 08:45 | Outpatient (CLI) | payer BC, SELFPAY ==
[2021-06-28 22:10] VITALS: BMI 49.4
[2025-02-13 09:18] LABS: Add Manual Diff / Slide Review NO; Basophils Absolute Auto 0 /uL (0-100); Basophils Percent Auto 0.5 % (0-2); Eosinophils Absolute Auto 100 /uL (0-450); Eosinophils Percent Auto 0.7 % (2-4); Hemoglobin 12.7 g/dL (12.0-16.0); Lymphocytes Absolute Auto 2600 /uL (1100-4500); Mean Corpuscular HGB Conc 34.2 % (30-36); Mean Corpuscular Hemoglobin 33.4 PG (26-34); Mean Corpuscular Volume 97.6 fL (80-100); Monocytes Absolute Auto 500 /uL (0-900); Monocytes Percent Auto 6.5 % (3-14); Neutrophils Absolute Auto 4900 /uL (1500-7000); Neutrophils Percent Auto 60.3 % (50-75); Platelet Count 266 X10^3/uL (150-400); Red Blood Cell Count 3.79 X10^6/uL (4.0-5.2); Red Cell Distribution Width 12.6 % (11.6-14.8); Reticulocyte Count, Percent 1.1 % (1.1-2.6); White Blood Cell Count 8.2 X10^3/uL (4.5-11.0)
[2025-02-13 09:34] LABS: Alanine Aminotransferase 27 IU/L (<35); Albumin 4.2 g/dL (3.5-5.0); Albumin Globulin Ratio 1.4 (1.0-2.8); Alkaline Phosphatase 71 U/L (38-126); Aspartate Aminotransferase 25 IU/L (14-36); BUN Creatinine Ratio 27.3 (6-22); Bilirubin Total 0.7 mg/dL (0.2-1.3); Blood Urea Nitrogen 18 mg/dL (7-17); Calcium 9.8 mg/dL (8.4-10.2); Carbon Dioxide 25 mmol/L (22-32); Chloride 102 mmol/L (98-107); Cholesterol 221 mg/dL (140-199); Estimated Glomerular Filt Rate > 60 mL/min (>60); Glucose 104 mg/dL (70-99); HDL Cholesterol 78 mg/dL (40-60); HEMOLYSIS < 15 (0-50); LDL Cholesterol Calculated 113 mg/dL (<100); Potassium 4.2 mmol/L (3.4-5.1); Sodium 136 mmol/L (137-145); Total Protein 7.2 g/dL (6.3-8.2); Triglycerides 152 mg/dL (35-150)
[2025-02-13 09:36] LABS: HEMOLYSIS < 15 (0-50); Iron 208 ug/dL (37-170)
[2025-02-13 09:52] LABS: Free T3, Triiodothyronine Free 3.66 pg/mL (2.77-5.27); Free T4, Direct Thyroxine 0.98 ng/dL (0.78-2.19); Percent Iron Saturation 65 % (15-50); Total Iron Binding Capacity 320 ug/dL (265-497); Transferrin 269 mg/dL (206-381)
[2025-02-13 10:06] LABS: Thyroid Stimulating Hormone 1.97 uIU/mL (0.47-4.68)
[2025-02-13 10:15] LABS: Ferritin 174 ng/mL (11-264)
[2025-02-13 10:42] LABS: Folate 17.7 ng/mL (2.76-20.0); Vitamin B12 827 pg/mL (239-931)
[2025-02-15 21:07] LABS: Zinc 67 ug/dL (44-115)
== END ==
PROVIDERS: PCP Nurse Practitioner; Referring Provider Nurse Practitioner; Visit Provider Nurse Practitioner
DX: Z00.00 Encounter for general adult medical examination without abnormal findings (principal); Z98.84 Bariatric surgery status
CPT/HCPCS: 36415; 80053; 80061; 82306; 82525; 82607; 82728; 82746; 83036; 83540; 83550; 84439; 84443; 84481; 84630; 85025; 85045

== ENCOUNTER → 2025-05-12 15:49 | Outpatient (CLI) | payer BC, SELFPAY ==
[2021-06-28 22:10] VITALS: BMI 49.4
--- NOTE | 2025-05-12 15:50 | DI.MG.S_ITS ---
MM screening mammo BI: 05/12/2025. BI-RADS: 1 CLINICAL: 54-year old female for bilateral screening mammogram. Tyrer-Cuzick lifetime risk of 3.7%. No personal or first-degree family history of breast cancer. Current reported family history of breast cancer: maternal grandmother. The patient had prior bilateral breast biopsies. PRIOR EXAMS 06/26/2022, 02/24/2022, 03/26/2019. MAMMOGRAPHY TECHNIQUE: 2D and 3D (tomosynthesis) digital mammographic views obtained, with additional images as needed for full coverage. Current study was also evaluated with a Computer Aided Detection (CAD) system. DENSITY A. The breasts are almost entirely fatty. MAMMOGRAPHY FINDINGS Bilateral: No suspicious mass, asymmetry, microcalcification, or other abnormality seen. No significant change from comparison. IMPRESSION: * No evidence of malignancy. RECOMMENDATIONS Bilateral * Annual screening mammography. OVERALL ASSESSMENT CATEGORY BI-RADS-1: Negative. The [employer] recommends annual screening mammography beginning at age 40 for women with average risk of breast cancer. ELECTRONICALLY SIGNED: David Clayton M.D. on 05/13/2025 at 10:16:01 AM PT Interpreting Station ID: [id number]
== END ==
PROVIDERS: PCP Nurse Practitioner; Referring Provider Nurse Practitioner; Visit Provider Nurse Practitioner
DX: Z12.31 Encounter for screening mammogram for malignant neoplasm of breast (principal); Z80.3 Family history of malignant neoplasm of breast
CPT/HCPCS: 77063; 77067

== ENCOUNTER → 2025-08-01 13:07 | Outpatient (CLI) | payer BC, SELFPAY ==
[2021-06-28 22:10] VITALS: BMI 49.4
[2025-08-01 14:13] LABS: Influenza A - CEPHEID Flu A NEGATIVE (NEGATIVE); Influenza B - CEPHEID Flu B NEGATIVE (NEGATIVE)
[2025-08-01 14:18] LABS: COVID-19 CEPHEID 4-PLEX PCR Negative (Negative)
== END ==
PROVIDERS: PCP Nurse Practitioner; Visit Provider Nurse Practitioner Family
DX: J02.9 Acute pharyngitis, unspecified (principal); R05.1 Acute cough
CPT/HCPCS: 87070; 87637